=== PATIENT | female | born 2000 | race Caucasian/White ===

== ENCOUNTER 2021-07-30 01:32 | Emergency (ER) | payer OTHER ==
[~2021-07-30] VITALS: Ht 165.1 cm; Wt 68.0 kg
[2021-07-30 03:35] LABS: BASOPHILS ABSOLUTE AUTO 0.07 K/mm3 (0.00-0.23); BASOPHILS PERCENT AUTO 1 % (0-2); EOSINOPHILS ABSOLUTE AUTO 0.07 K/mm3 (0.00-0.68); EOSINOPHILS PERCENT AUTO 1 % (0-6); Hemoglobin 14.3 g/dL (11.5-16.0); IMMATURE GRAN ABSOLUTE AUTO 0.05 K/mm3 (0.00-0.10); IMMATURE GRAN PERCENT AUTO 0 % (0-1); LYMPHOCYTES ABSOLUTE AUTO 0.52 K/mm3 (0.84-5.20); LYMPHOCYTES PERCENT AUTO 4 % (21-46); MONOCYTES ABSOLUTE AUTO 0.72 K/mm3 (0.16-1.47); MONOCYTES PERCENT AUTO 5 % (4-13); Mean Corpuscular HGB 25.6 pg (26.0-34.0); Mean Corpuscular HGB Conc 32.5 g/dL (31.5-36.5); Mean Corpuscular Volume 79 fL (80-100); Mean Platelet Volume 10.1 fL (9.1-12.4); NEUTROPHILS PERCENT AUTO 90 % (41-73); Platelet Count 351 K/mm3 (150-400); RDW Coefficient Variation 14.6 % (11.7-14.2); RDW Standard Deviation 41.4 fL (35.1-46.3); Red Blood Cell Count 5.58 M/mm3 (3.80-5.20); White Blood Cell Count 14.63 K/mm3 (4.00-11.30)
[2021-07-30 03:51] LABS: Albumin, Blood 3.9 g/dL (3.4-5.0); Bilirubin, Total 0.4 mg/dL (0.1-1.0); Bun/Creatinine Ratio 23.2 (12.0-20.0); Calcium, Blood 9.6 mg/dL (8.5-10.1); Creatinine, Blood 0.65 mg/dL (0.40-1.00); Globulin, Blood 4.1 g/dL (2.2-4.0); Potassium, Blood 4.1 mmol/L (3.5-5.5)
[2021-07-30 04:12] LABS: Source, Urine Clean Catch
[2021-07-30 04:15] LABS: Blood, Urine Neg (Neg); Glucose Qualitative, Urine 2+ (Neg); Ketones, Urine Neg (Neg); Leukocyte Esterase, Urine 1+ (Neg); Nitrite, Urine Neg (Neg); Protein, Urine 2+ (Neg); Urobilinogen, Urine NORM (Normal)
[2021-07-30 04:22] LABS: Appearance, Urine Hazy (Clear); Bilirubin, Urine 1+ (Neg); Color, Urine Yellow (P-Yellow)
[2021-07-30 04:24] LABS: Bacteria Few /hpf; Mucus Light (0-Heavy); Squamous Epithelial Cells Many /hpf (Few); Yeast/Fungi Urine Few /hpf
[2021-07-30 05:57] LABS: Influenza A Negative (NEGATIVE); Influenza B Negative (NEGATIVE)
[2021-07-30 06:13] LABS: SARS-Cov-2 (COVID-19) PCR, MMC NEGATIVE (NEGATIVE)
[2021-07-30 06:25] LABS: Source, Urine Clean Catch
[2021-07-30 06:28] LABS: Bilirubin, Urine Neg (Neg); Blood, Urine Neg (Neg); Glucose Qualitative, Urine 1+ (Neg); Ketones, Urine 4+ (Neg); Leukocyte Esterase, Urine 1+ (Neg); Nitrite, Urine Neg (Neg); Protein, Urine 2+ (Neg); Specific Gravity, Urine 1.015 (1.003-1.022); Urobilinogen, Urine NORM (Normal); pH, Urine 6.5 (5.0-8.0)
[2021-07-30 06:44] LABS: Appearance, Urine Hazy (Clear); Bacteria Few /hpf; Color, Urine Yellow (P-Yellow); Red Blood Cells, Urine Not Seen /hpf (0-2); Squamous Epithelial Cells Mod /hpf (Few)
[2021-07-30] MEDS ORDERED: ONDA4ODT MM (07:19)
[2021-07-30] MEDS ORDERED: CEFP200 PO (07:19)
== END 2021-07-30 07:34 | disposition home or self-care (01) ==
LOC: ER 01:32
PROVIDERS: Emergency Medicine; Student in an Organized Health Care Education/Training Program
DX: R10.9 Unspecified abdominal pain (principal); E11.9 Type 2 diabetes mellitus without complications; R11.2 Nausea with vomiting, unspecified; Z20.822 Contact with and (suspected) exposure to COVID-19
CPT/HCPCS: 36415; 80053; 81001; 81025; 82947; 85025; 87804; 87807; A9270; J0696; J1885; J2405; J2765; J7030; U0004

== ENCOUNTER 2022-02-25 15:42 | Emergency (ER) | payer OTHER ==
[~2022-02-25] VITALS: Ht 165.1 cm; Wt 63.5 kg
[~2022-02-25 15:42] MED LIST: CEFP200 PO; CEPH500 PO; ONDA4ODT MM
[2022-02-25 16:51] LABS: Albumin, Blood 3.8 g/dL (3.4-5.0); Albumin/Globulin Ratio 1.1 (0.8-1.8); Bilirubin, Total 0.5 mg/dL (0.1-1.0); Bun/Creatinine Ratio 19.5 (12.0-20.0); Creatinine, Blood 0.67 mg/dL (0.40-1.00); Globulin, Blood 3.5 g/dL (2.2-4.0); Potassium, Blood 4.1 mmol/L (3.5-5.5); Total Protein, Blood 7.3 g/dL (6.4-8.2)
[2022-02-25 16:55] LABS: Influenza B, PCR NEGATIVE (NEGATIVE); Resp Syncytial Virus, PCR NEGATIVE (NEGATIVE); SARS-Cov-2 (COVID-19) PCR, MMC NEGATIVE (NEGATIVE)
[2022-02-25 16:58] LABS: Influenza A, PCR POSITIVE (NEGATIVE)
[2022-02-25 17:01] LABS: BASOPHILS PERCENT AUTO 1 % (0-2); EOSINOPHILS ABSOLUTE AUTO 0.06 K/mm3 (0.00-0.68); EOSINOPHILS PERCENT AUTO 1 % (0-6); Hemoglobin 13.6 g/dL (11.5-16.0); NRBC ABSOLUTE 0.03 K/mm3 (0.00-0.02); NRBC Auto 0.3 /100 WBC (0.0-0.2)
[2022-02-25 17:03] LABS: IMMATURE GRAN PERCENT AUTO 1 % (0-1); LYMPHOCYTES PERCENT AUTO 5 % (21-46)
[2022-02-25 17:23] LABS: BASOPHILS ABSOLUTE AUTO 0.14 K/mm3 (0.00-0.23); IMMATURE GRAN ABSOLUTE AUTO 0.14 K/mm3 (0.00-0.10); LYMPHOCYTES ABSOLUTE AUTO 0.53 K/mm3 (0.84-5.20); MONOCYTES ABSOLUTE AUTO 0.99 K/mm3 (0.16-1.47); MONOCYTES PERCENT AUTO 9 % (4-13); NEUTROPHILS ABSOLUTE AUTO 9.29 K/mm3 (1.96-9.15); NEUTROPHILS PERCENT AUTO 83 % (41-73); Red Blood Cell Count 4.96 M/mm3 (3.80-5.20); White Blood Cell Count 11.15 K/mm3 (4.00-11.30)
[2022-02-25 17:24] LABS: Hematocrit 40.4 % (33.0-51.0); Mean Corpuscular HGB 27.4 pg (26.0-34.0); Mean Corpuscular HGB Conc 33.7 g/dL (31.5-36.5); Mean Corpuscular Volume 82 fL (80-100); Mean Platelet Volume 10.4 fL (9.1-12.4); Platelet Count 347 K/mm3 (150-400); RDW Coefficient Variation 13.2 % (11.7-14.2); RDW Standard Deviation 37.9 fL (35.1-46.3)
== END 2022-02-25 20:40 | disposition home or self-care (01) ==
LOC: ER 15:42
PROVIDERS: Physician Assistant
DX: J10.1 Influenza due to other identified influenza virus with other respiratory manifestations (principal); E10.9 Type 1 diabetes mellitus without complications; Z88.1 Allergy status to other antibiotic agents; Z88.8 Allergy status to other drugs, medicaments and biological substances; Z20.822 Contact with and (suspected) exposure to COVID-19
CPT/HCPCS: 0241U; 36415; 80053; 83690; 84703; 85025; J1885; J7030

== ENCOUNTER → 2022-09-22 | Outpatient (CLI) | payer OTHER ==
[2022-09-25 02:31] LABS: CHLAMYDIA TRACHOMATIS, NAA Negative (Negative)
== END | disposition home or self-care (01) ==
LOC: LAB 19:00 → LAB SHORT 19:00
PROVIDERS: Physician Assistant Medical
DX: N89.8 Other specified noninflammatory disorders of vagina (principal)
CPT/HCPCS: 87070; 87205; 87491; 87591

== ENCOUNTER → 2023-01-26 | Outpatient (CLI) | payer OTHER ==
[~2023-01-26] MED LIST changes: +INSULIN AS100 UNIT/8; +OXYC5 PO; +PROM25 PO
[2023-01-27 11:34] LABS: Candida species (DNA Probe) Negative (NEGATIVE); G. vaginalis (DNA Probe) Negative (NEGATIVE); T. vaginalis (DNA Probe) Negative (NEGATIVE)
== END | disposition home or self-care (01) ==
LOC: LAB 15:08 → LAB SHORT 15:08
PROVIDERS: Physician Assistant Medical
DX: R31.9 Hematuria, unspecified (principal)
CPT/HCPCS: 87480; 87510; 87660

== ENCOUNTER → 2023-02-03 | Outpatient (CLI) | payer OTHER ==
[2023-02-03 14:12] LABS: Source, Urine Clean Catch
[2023-02-03 16:43] LABS: Bacteria Many /hpf; Squamous Epithelial Cells Mod /hpf (Few); Transitional Epithelial Cells Rare /hpf (0-Rare)
[2023-02-03 16:50] LABS: U Amphetamine Screen Not Detected; U Barbituate Screen Not Detected; U Benzodiazapine Screen Not Detected; U Buprenorphine Screen Not Detected; U Cannabinoids Screen DETECTED; U Cocaine Screen Not Detected; U Methadone Screen Not Detected; U Methamphetamine Screen Not Detected; U Opiates Screen Not Detected; U Oxycodone Screen Not Detected; U Phencyclidine Screen Not Detected
[2023-02-06 08:14] LABS: 11-NOR-9-CARBOXY-THC,URN,QUANT >500 ng/mL
== END | disposition home or self-care (01) ==
LOC: LAB 14:10 → LAB SHORT 14:10
PROVIDERS: Advanced Practice Midwife
DX: Z34.81 Encounter for supervision of other normal pregnancy, first trimester (principal)
CPT/HCPCS: 81015; 87086; G0480

== ENCOUNTER 2023-06-27 18:46 | Emergency (ER) | payer OTHER ==
[~2023-06-27] VITALS: Ht 165.1 cm; Wt 78.0 kg
[~2023-06-27 18:46] MED LIST changes: +PYRI100 PO; +Zithromax250 MG PO
[2023-06-27 19:59] LABS: BASOPHILS ABSOLUTE AUTO 0.06 K/mm3 (0.00-0.23); BASOPHILS PERCENT AUTO 1 % (0-2); EOSINOPHILS ABSOLUTE AUTO 0.11 K/mm3 (0.00-0.68); EOSINOPHILS PERCENT AUTO 1 % (0-6); Hematocrit 35.8 % (33.0-51.0); Hemoglobin 11.8 g/dL (11.5-16.0); IMMATURE GRAN ABSOLUTE AUTO 0.04 K/mm3 (0.00-0.10); IMMATURE GRAN PERCENT AUTO 0 % (0-1); LYMPHOCYTES ABSOLUTE AUTO 1.69 K/mm3 (0.84-5.20); LYMPHOCYTES PERCENT AUTO 13 % (21-46); MONOCYTES ABSOLUTE AUTO 0.91 K/mm3 (0.16-1.47); MONOCYTES PERCENT AUTO 7 % (4-13); Mean Corpuscular HGB 25.9 pg (26.0-34.0); Mean Corpuscular Volume 79 fL (80-100); Mean Platelet Volume 10.7 fL (9.1-12.4); NEUTROPHILS ABSOLUTE AUTO 10.11 K/mm3 (1.96-9.15); NEUTROPHILS PERCENT AUTO 78 % (41-73); Platelet Count 262 K/mm3 (150-400); RDW Coefficient Variation 12.8 % (11.7-14.2); RDW Standard Deviation 36.2 fL (35.1-46.3); Red Blood Cell Count 4.56 M/mm3 (3.80-5.20); White Blood Cell Count 12.92 K/mm3 (4.00-11.30)
[2023-06-27] MEDS ORDERED: ONDA4 PO (20:00)
[2023-06-27] MEDS ORDERED: NOVOLOG100 UNIT/2 SC (20:01)
[2023-06-27] MEDS ORDERED: INSULIN GL100 UNIT/2 SC (20:01)
[2023-06-27] MEDS ORDERED: Ondansetron HCl 2 MG / ML 2ML Vial IV ONE (20:10)
[2023-06-27 20:21] LABS: Albumin, Blood 2.7 g/dL (3.4-5.0); Albumin/Globulin Ratio 0.6 (0.8-1.8); Bilirubin, Total 0.3 mg/dL (0.1-1.0); Bun/Creatinine Ratio 16.6 (12.0-20.0); Calcium, Blood 8.8 mg/dL (8.5-10.1); Creatinine, Blood 0.48 mg/dL (0.40-1.00); Globulin, Blood 4.4 g/dL (2.2-4.0); Total Protein, Blood 7.1 g/dL (6.4-8.2)
[2023-06-27 20:22] LABS: Source, Urine Clean Catch
[2023-06-27 20:27] LABS: Appearance, Urine Clear (Clear); Bilirubin, Urine Neg (Neg); Blood, Urine Neg (Neg); Color, Urine Yellow (P-Yellow); Glucose Qualitative, Urine 2+ (Neg); Ketones, Urine 4+ (Neg); Leukocyte Esterase, Urine 1+ (Neg); Nitrite, Urine Neg (Neg); Protein, Urine 2+ (Neg); Urobilinogen, Urine NORM (Normal)
[2023-06-27 20:37] LABS: Bacteria Many /hpf; Hyaline Casts 0-2 /lpf (0-2); Mucus Mod (0-Heavy); Red Blood Cells, Urine 0-2 /hpf (0-2); Squamous Epithelial Cells Many /hpf (Few)
[2023-06-27] MEDS ORDERED: DiphenhydrAMINE HCl 50 MG/ML 1ML Vial IV ONE (20:40)
[2023-06-27] MEDS ORDERED: Lactated Ringer's 1,000 ML IV ONE (20:40)
[2023-06-27] MEDS ORDERED: FentaNYL Citrate 50 MCG/ML 2 ML Injection IV PRN (20:40)
[2023-06-27] MEDS ORDERED: Metoclopramide HCl 5MG / ML 2ML Vial IV ONE (20:40)
[2023-06-27] MEDS ORDERED: Famotidine 10 MG/ML 2ML Vial IV ONE (22:05)
[2023-06-27] MEDS ORDERED: RX Prepack 2 Tabs Ondansetron ODT 4MG UD ONE (22:35)
[2023-06-27] MEDS ORDERED: HYDR1TAB94 PO (22:39)
[2023-06-27] MEDS ORDERED: ONDA4ODT SL (22:39)
[2023-06-27] MEDS ORDERED: RX PP HYDROcodone-APAP 1 Prepack/30MLBTL UD ONE (22:40)
[2023-06-27 22:45] VITALS: BP 123/85
== END 2023-06-27 22:53 | disposition home or self-care (01) ==
LOC: ER 18:46
PROVIDERS: Emergency Medicine
DX: O26.893 Other specified pregnancy related conditions, third trimester (principal); R10.12 Left upper quadrant pain; R11.10 Vomiting, unspecified; R82.81 Pyuria; O24.013 Pre-existing type 1 diabetes mellitus, in pregnancy, third trimester; Z3A.29 29 weeks gestation of pregnancy; Z88.0 Allergy status to penicillin; Z88.1 Allergy status to other antibiotic agents
CPT/HCPCS: 76700; 76815; 80053; 81001; 82947; 83690; 85025; 87086; 96361; 96374; 96375; 96376; 99284-25; A9270; J1200; J2405; J2765; J3010; J7120

== ENCOUNTER 2023-06-28 17:49 | Inpatient (IN) | payer OTHER ==
[~2023-06-28] VITALS: Ht 165.1 cm; Wt 78.2 kg
[~2023-06-28 17:49] MED LIST changes: +HYDR1TAB94 PO; +INSULIN GL100 UNIT/2 SC; +NOVOLOG100 UNIT/2 SC; +ONDA4 PO; +ONDA4ODT SL
[2023-06-28 18:01] VITALS: BP 120/75
[2023-06-28] MEDS ORDERED: Metoclopramide HCl 5MG / ML 2ML Vial IV ONE (18:25)
[2023-06-28] MEDS ORDERED: FentaNYL Citrate 50 MCG/ML 2 ML Injection IV ONE (18:25)
[2023-06-28] MEDS ORDERED: Lactated Ringer's 500 ML IV ONE (18:25)
[2023-06-28] MEDS ORDERED: Ondansetron HCl 2 MG / ML 2ML Vial IV PRN ×2 (18:25→21:20)
[2023-06-28 20:07] LABS: BASOPHILS ABSOLUTE AUTO 0.09 K/mm3 (0.00-0.23); BASOPHILS PERCENT AUTO 1 % (0-2); EOSINOPHILS ABSOLUTE AUTO 0.07 K/mm3 (0.00-0.68); EOSINOPHILS PERCENT AUTO 1 % (0-6); Hematocrit 34.7 % (33.0-51.0); Hemoglobin 11.4 g/dL (11.5-16.0); IMMATURE GRAN ABSOLUTE AUTO 0.09 K/mm3 (0.00-0.10); IMMATURE GRAN PERCENT AUTO 1 % (0-1); LYMPHOCYTES ABSOLUTE AUTO 1.53 K/mm3 (0.84-5.20); LYMPHOCYTES PERCENT AUTO 11 % (21-46); MONOCYTES PERCENT AUTO 6 % (4-13); Mean Corpuscular HGB Conc 32.9 g/dL (31.5-36.5); Mean Corpuscular Volume 79 fL (80-100); Mean Platelet Volume 10.7 fL (9.1-12.4); NEUTROPHILS ABSOLUTE AUTO 11.96 K/mm3 (1.96-9.15); NEUTROPHILS PERCENT AUTO 82 % (41-73); Platelet Count 289 K/mm3 (150-400); RDW Coefficient Variation 12.6 % (11.7-14.2); RDW Standard Deviation 36.1 fL (35.1-46.3); Red Blood Cell Count 4.38 M/mm3 (3.80-5.20); White Blood Cell Count 14.54 K/mm3 (4.00-11.30)
[2023-06-28] MEDS ORDERED: Cyclobenzaprine HCl 10 MG Tab PO ONE (20:10)
[2023-06-28] MEDS ORDERED: Lactated Ringer's 1,000 ML IV ONE (20:10)
[2023-06-28] MEDS ORDERED: Pantoprazole Sodium 40 MG Injection IV ONE (20:10)
[2023-06-28 20:32] LABS: Albumin, Blood 2.7 g/dL (3.4-5.0); Albumin/Globulin Ratio 0.6 (0.8-1.8); Bilirubin, Total 0.4 mg/dL (0.1-1.0); Bun/Creatinine Ratio 10.6 (12.0-20.0); Calcium, Blood 8.6 mg/dL (8.5-10.1); Creatinine, Blood 0.57 mg/dL (0.40-1.00); Globulin, Blood 4.2 g/dL (2.2-4.0); Potassium, Blood 3.7 mmol/L (3.5-5.5); Total Protein, Blood 6.9 g/dL (6.4-8.2)
[2023-06-28 20:34] VITALS: BP 110/58
[2023-06-28] MEDS ORDERED: Metoclopramide HCl 5MG / ML 2ML Vial IV PRN (21:20)
[2023-06-28 21:27] LABS: Magnesium, Blood 1.7 mg/dL (1.6-2.4)
[2023-06-28] MEDS ORDERED: NS KCl 20mEq 1,000 ML IV SCH (22:00)
[2023-06-28 22:03] LABS: Beta-hydroxybutyrate 46.2 mg/dL (0.2-2.8)
[2023-06-28 22:04] LABS: Phosphorus, Blood 2.4 mg/dL (2.5-4.9)
[2023-06-28] MEDS ORDERED: Potassium Phosphate Dibasic 20 MM in Dextrose 5% 500 ML IV STA ×2 (22:18→23:39)
[2023-06-28] MEDS ORDERED: Sodium Bicarb 8.4% Inj 100 MEQ in Sodium Chloride 0.45% 1,000 ML IV SCH (22:30)
[2023-06-28 22:33] VITALS: BP 121/74
[2023-06-28] MEDS ORDERED: Insulin Glargine-Yfgn 100 Unit/mL 3 ML SYR SC ONE (22:45)
[2023-06-28] MEDS ORDERED: FentaNYL Citrate 50 MCG/ML 2 ML Injection IV PRN (22:55)
[2023-06-28] MEDS ORDERED: Acetaminophen 500 MG Tab PO PRN (22:55)
[2023-06-28 23:04] LABS: Bun/Creatinine Ratio 10.6 (12.0-20.0); Calcium, Blood 8.1 mg/dL (8.5-10.1); Creatinine, Blood 0.57 mg/dL (0.40-1.00); Potassium, Blood 3.7 mmol/L (3.5-5.5)
[2023-06-29] MEDS ORDERED: METO10 PO (00:40)
[2023-06-29 00:55] VITALS: BP 119/69
[2023-06-29 01:07] LABS: Source, Urine Clean Catch
[2023-06-29 01:13] LABS: Bilirubin, Urine Neg (Neg); Blood, Urine Neg (Neg); Glucose Qualitative, Urine 2+ (Neg); Ketones, Urine 4+ (Neg); Leukocyte Esterase, Urine Neg (Neg); Nitrite, Urine Neg (Neg); Protein, Urine 2+ (Neg); Specific Gravity, Urine 1.025 (1.003-1.022); Urobilinogen, Urine NORM (Normal)
[2023-06-29 01:25] LABS: Appearance, Urine Clear (Clear); Color, Urine Yellow (P-Yellow)
[2023-06-29 01:27] LABS: Bacteria Rare /hpf; Red Blood Cells, Urine Not Seen /hpf (0-2); Squamous Epithelial Cells Mod /hpf (Few); White Blood Cells, Urine 0-2 /hpf (0-5)
--- NOTE | 2023-06-29 01:30 | NUR ---
CBG 110, NO INSULIN COVERAGE INDICATED PER LOW SS ORDER
[2023-06-29 04:12] VITALS: BP 119/62
[2023-06-29 05:00] LABS: BASOPHILS ABSOLUTE AUTO 0.06 K/mm3 (0.00-0.23); BASOPHILS PERCENT AUTO 1 % (0-2); EOSINOPHILS ABSOLUTE AUTO 0.14 K/mm3 (0.00-0.68); EOSINOPHILS PERCENT AUTO 1 % (0-6); Hematocrit 27.8 % (33.0-51.0); Hemoglobin 9.4 g/dL (11.5-16.0); IMMATURE GRAN ABSOLUTE AUTO 0.07 K/mm3 (0.00-0.10); IMMATURE GRAN PERCENT AUTO 1 % (0-1); LYMPHOCYTES ABSOLUTE AUTO 2.12 K/mm3 (0.84-5.20); LYMPHOCYTES PERCENT AUTO 19 % (21-46); MONOCYTES ABSOLUTE AUTO 0.88 K/mm3 (0.16-1.47); MONOCYTES PERCENT AUTO 8 % (4-13); Mean Corpuscular HGB 26.5 pg (26.0-34.0); Mean Corpuscular HGB Conc 33.8 g/dL (31.5-36.5); Mean Corpuscular Volume 78 fL (80-100); Mean Platelet Volume 10.4 fL (9.1-12.4); NEUTROPHILS PERCENT AUTO 71 % (41-73); Platelet Count 239 K/mm3 (150-400); RDW Coefficient Variation 12.7 % (11.7-14.2); Red Blood Cell Count 3.55 M/mm3 (3.80-5.20); White Blood Cell Count 11.37 K/mm3 (4.00-11.30)
[2023-06-29 05:24] LABS: Albumin, Blood 2.1 g/dL (3.4-5.0); Albumin/Globulin Ratio 0.6 (0.8-1.8); Bilirubin, Total 0.3 mg/dL (0.1-1.0); Bun/Creatinine Ratio 7.4 (12.0-20.0); Calcium, Blood 7.7 mg/dL (8.5-10.1); Creatinine, Blood 0.54 mg/dL (0.40-1.00); Globulin, Blood 3.4 g/dL (2.2-4.0); Potassium, Blood 3.8 mmol/L (3.5-5.5); Total Protein, Blood 5.5 g/dL (6.4-8.2)
--- NOTE | 2023-06-29 05:44 | NUR ---
DR JOLLEY UPDATED BY PHONE. HE HAS REVIEWED THE AM LABS AND NEW ORDERS ARE PENDING.
[2023-06-29] MEDS ORDERED: Sodium Bicarb 8.4% Inj 100 MEQ in Sodium Chloride 0.45% 1,000 ML IV ONE (05:45)
[2023-06-29] MEDS ORDERED: Sodium Bicarb 8.4% 1 MEQ/ML 50 ML Vial ONE (05:50)
[2023-06-29] MEDS ORDERED: Insulin Human Lispro 100 Units/ML 3ML Syringe SC SCH ×4 (06:00→08:30)
[2023-06-29] MEDS ORDERED: Sodium Bicarb 8.4% 1 MEQ/ML 50 ML Vial IV ONE (06:00)
[2023-06-29] MEDS ORDERED: Pantoprazole Sodium 40 MG Injection IV SCH (06:28)
[2023-06-29 08:04] VITALS: BP 119/65
--- NOTE | 2023-06-29 08:29 | NUR ---
UPDATE UPDATE TO DR RHODES. OK TO TRANSFER TO MEDICAL FLOOR. WILL CONTINUE TO DO NST TWICE A SHIFT. CALL TO DIALS SUPERVISOR AND WILL CALL BACK WITH A BED NUMBER. PT RESTING AFTER FENTANYL.
[2023-06-29] MEDS ORDERED: FentaNYL Citrate 50 MCG/ML 2 ML Injection IV PRN (08:45)
[2023-06-29] MEDS ORDERED: Enoxaparin 40 MG/0.4 ML SYR SC SCH (09:00)
--- NOTE | 2023-06-29 10:18 | NUR ---
REPORT GIVEN TO LIGIA Leyva RN. PT TRANSFERRED TO ROOM 330 AT THIS TIME. WILL BE BACK UP THIS AFTERNOON FOR NST. PT FEELING OK AT THIS TIME AFTER LAST DOSE OF FENTANYL. IV SALINE LOCKED FOR TRANSPORT AND NEW BAG OF SODIUM BICARB GIVEN TO BARRY RODRIGUEZ TO HANG.
[2023-06-29 10:54] VITALS: BP 119/86
[2023-06-29 11:25] LABS: Bun/Creatinine Ratio 6.9 (12.0-20.0); Creatinine, Blood 0.58 mg/dL (0.40-1.00); Potassium, Blood 3.5 mmol/L (3.5-5.5)
[2023-06-29 12:49] LABS: Influenza A, PCR NEGATIVE (NEGATIVE); Influenza B, PCR NEGATIVE (NEGATIVE); Resp Syncytial Virus, PCR NEGATIVE (NEGATIVE); SARS-Cov-2 (COVID-19) PCR, MMC NEGATIVE (NEGATIVE)
[2023-06-29] MEDS ORDERED: Potassium Chloride 40 MEQ in NS 250 ML IV ONE (15:50)
[2023-06-29] MEDS ORDERED: NS 250 ML IV PRN (16:40)
[2023-06-29] MEDS ORDERED: Insulin Glargine-Yfgn 100 Unit/mL 3 ML SYR SC ONE (17:55)
[2023-06-29] MEDS ORDERED: Insulin Glargine-Yfgn 100 Unit/mL 3 ML SYR SC SCH ×2 (18:00→21:00)
[2023-06-29 18:03] VITALS: BP 123/83
[2023-06-29 18:24] LABS: Bun/Creatinine Ratio 7.8 (12.0-20.0); Calcium, Blood 8.1 mg/dL (8.5-10.1); Creatinine, Blood 0.51 mg/dL (0.40-1.00); Potassium, Blood 3.8 mmol/L (3.5-5.5)
--- NOTE | 2023-06-29 19:29 | NUR ---
PT IS ALERT AND ORIENTED X4. ABLE TO MAKE NEEDS KNOWN. SHE TOLORATED DINNER THIS EVENING. INDEPENDENT IN ROOM. BACK PAIN HAS BEEN DIFFICULT TO CONTROL. PT NO LONGER IN DKA. BLOOD SUGARS HAVE BEEN WNL.
[2023-06-29 19:43] VITALS: BP 116/66
[2023-06-30] VITALS (15 sets, daily range): BP systolic 111–156; BP diastolic 65–105
--- NOTE | 2023-06-30 05:25 | NUR ---
SHIFT SUMMARY PT HAS BEEN IN INTENSE PAIN WITH ACHEY/CRAMPY PAIN IN HER LOWER BACK. SOME RELIEF FOUND WITH COUNTER PRESSURE. APPROX 0515, PT EXPERIENCED SUDDEN SHARP CRAMPING PAIN IN THE RIGHT SIDE OF HER ABDOMEN THAT CAME WITH IMMENSE PAIN IN HER BACK, AND TIGHTENING IN HER BELLY. INFORMED FBP. WILL CONTINUE TO MONITOR. PT WOULD CERTAINLY BENEFIT FROM BRASS POLISHER, SHE HAS BEEN RECEIVING 50MCG IV FENTANYL Q1-2HRS CONSISTANTLY THROUGHOUT SHIFT. HER PAIN IS DULLED WITH MEDICATION ADMINISTRATION. PT UNDERGOING NST'S Q6HRS FROM FBP. CONTINUING TO MONITOR. PT HAS BEEN PLEASANT AND COOPERATIVE WITH CARE.
[2023-06-30] MEDS ORDERED: D5W-NS 1,000 ML IV SCH (07:55)
[2023-06-30] MEDS ORDERED: Insulin Human Regular 100 UNIT in NS 100 ML IV SCH (08:00)
--- NOTE | 2023-06-30 08:31 | NUR ---
0818. Pt awake and alert x4. Ambulating to bathroom independently. Nausea improved with IV Zofran. Resp even nonlabored on RA. Orders to transfer to ICU for insulin gtt. Pt informed of transfer. Report called to TILE MECHANICMICHAEL Carmona. Pt transferred to ICU with german professorMICHAEL jernigan all belongings.
[2023-06-30] MEDS ORDERED: OxyCODONE HCL 5 MG TAB PO PRN ×2 (08:35)
[2023-06-30] MEDS ORDERED: Cyclobenzaprine HCl 10 MG Tab PO PRN (08:35)
[2023-06-30] MEDS ORDERED: FentaNYL Citrate 50 MCG/ML 2 ML Injection IV PRN (08:35)
[2023-06-30] MEDS ORDERED: Famotidine 10 MG/ML 2ML Vial IV SCH (09:00)
[2023-06-30] MEDS ORDERED: Acetaminophen 500 MG Tab PO SCH (09:00)
[2023-06-30] MEDS ORDERED: Sod Ferric Gluc Complx/Sucrose 125 MG in NS 100 ML IV SCH (09:00)
[2023-06-30 10:28] LABS: Bun/Creatinine Ratio 5.7 (12.0-20.0); Calcium, Blood 8.5 mg/dL (8.5-10.1); Creatinine, Blood 0.52 mg/dL (0.40-1.00); Magnesium, Blood 1.7 mg/dL (1.6-2.4); Phosphorus, Blood 1.9 mg/dL (2.5-4.9)
[2023-06-30 12:14] LABS: U Amphetamine Screen Not Detected; U Barbituate Screen Not Detected; U Benzodiazapine Screen Not Detected; U Buprenorphine Screen Not Detected; U Cannabinoids Screen DETECTED; U Cocaine Screen Not Detected; U Methadone Screen Not Detected; U Methamphetamine Screen Not Detected; U Opiates Screen Not Detected; U Oxycodone Screen Not Detected; U Phencyclidine Screen Not Detected
[2023-06-30] MEDS ORDERED: Potassium Phosphate Dibasic 30 MM in Dextrose 5% 500 ML IV STA (12:28)
--- NOTE | 2023-06-30 13:23 | NUR ---
Pt. is awake in bed and on the phone with family. As soon as she hung up I entered the room and she welcomed my visit. Pt. is pleasant, but displays evidence of being anxious about having a new line put in. WHen this liquor rectifier arrived, the Pt. verbalized, "you are exactly who I wantd to see." Pastoral encouagement is given and I normalize the Pt. experience. Prayed with Pt. Pt. vebralized gratitude for the spiritual care visit, and welcomed this liquor rectifier to return.
[2023-06-30 14:24] LABS: Bun/Creatinine Ratio 5.3 (12.0-20.0); Calcium, Blood 8.4 mg/dL (8.5-10.1); Creatinine, Blood 0.57 mg/dL (0.40-1.00); Phosphorus, Blood 1.9 mg/dL (2.5-4.9); Potassium, Blood 4.1 mmol/L (3.5-5.5)
--- NOTE | 2023-06-30 17:57 | NUR ---
SUMMARY PT TRANSFERED FROM MEDICAL FLOOR THIS AM FOR INSULIN GTT. STARTED ON D5 NS WELL. A/O X4, OOB INDEP. PT C/O LOW BACK PAIN. HAS GOTTEN OXYCODONE, FENTANYL, FLEXERIL AND TYLENOL T/O THE DAY. PAIN PERSISTS. NO NAUSEA. WAS ANXIOUS THIS AM AND FEELING OVERWHELMED, TEARFUL, BUT SEEMS TO BE IMPROVING THE DAY GOES ON. DR. OLIVA UPDATED THIS AFTERNOON AT BEDSIDE. L&D NURSE AT BEDSIDE FOR MONITORING THIS AFTERNOON.
[2023-06-30 18:22] LABS: Bun/Creatinine Ratio 3.4 (12.0-20.0); Calcium, Blood 8.5 mg/dL (8.5-10.1); Creatinine, Blood 0.59 mg/dL (0.40-1.00); Magnesium, Blood 2.1 mg/dL (1.6-2.4); Phosphorus, Blood 1.9 mg/dL (2.5-4.9)
--- NOTE | 2023-06-30 20:47 | NUR ---
ASSUMPTION OF CARE: RECEIVED REPORT FROM ALVIN RODRIGUEZ. PT ALERT AND ORIENTED AND ABLE TO ANSWER QUESTIONS APPROPRIATELY. PT COOPERATIVE WITH CARE, ALTHOUGH NOTICEABLY ANXIOUS AT TIMES AND SOMETIMES TEARFUL. PT ON RA WITH SPO2 >95%. DENIES SOB. WELDING MACHINE OPERATOR THERMIT IN PLACE, ST WITH HR 100'S. DENIES CHEST PAIN/PRESSURE. SBP STABLE. PT ON INSULIN DRIP AT 1 UNIT/HR. D5NS AT 125 ML/HR. INFUSING THROUGH POWERGLIDE TO CHU. POWERGLIDE PATENT. PIV TO ESEQUIEL, PATENT AND SALINE LOCKED. PT ENDORSES PAIN IN LOWER BACK AND UPPER STOMACH, SHE STATES IT IS A MORE CHRONIC PAIN AND HER OB IS AWARE. MEDICATED PER EMAR AND GIVEN A HEATING PAD WHICH SHE STATES MADE THE PAIN MORE TOLERABLE. PT ABLE TO AMBULATE TO TOILET INDEPENDENTLY. VOIDING YELLOW URINE. NO BM THIS SHIFT. TOLERATING PO INTAKE WELL. PT HAD AN EPISODE OF NAUSEA, MEDICATED PER EMAR WITH RELIEF. BED LOW AND LOCKED. CALL LIGHT IN REACH.
[2023-06-30 22:52] LABS: Bun/Creatinine Ratio 3.4 (12.0-20.0); Calcium, Blood 8.3 mg/dL (8.5-10.1); Creatinine, Blood 0.59 mg/dL (0.40-1.00); Potassium, Blood 3.7 mmol/L (3.5-5.5)
[2023-06-30] MEDS ORDERED: Potassium Chloride 20 MEQ TabCR PO ONE (23:10)
[2023-07-01] VITALS (13 sets, daily range): BP systolic 104–143; BP diastolic 59–98
[2023-07-01] MEDS ORDERED: Acetaminophen 500 MG Tab PO PRN (02:35)
[2023-07-01 02:38] LABS: Bun/Creatinine Ratio 3.3 (12.0-20.0); Calcium, Blood 8.2 mg/dL (8.5-10.1); Creatinine, Blood 0.6 mg/dL (0.40-1.00); Potassium, Blood 4.1 mmol/L (3.5-5.5)
--- NOTE | 2023-07-01 05:25 | NUR ---
SHIFT SUMMARY: PT CONTINUES TO REMAIN ALERT AND ORIENTED T/O THE SHIFT. PT STILL HAVING FREQUENT COMPLAINTS OF PAIN IN HER LOWER BACK AND MID ABDOMEN. MEDICATED PER EMAR WITH MINIMAL RELIEF. HEATING PAD APPLIED TO BACK, WITH MINIMAL RELIEF. PT REMAINS ON RA WITH SPO2 >95%. DENIES SOB. PT HAD C/O NAUSEA T/O THE NIGHT WHICH WAS RELIEVED WITH MEDICATION AND CRACKERS. TERMINAL OPERATIONS SUPERVISOR IN PLACE, ST WITH HR 100'S. SBP STABLE, NO C/O CHEST PAIN OR PRESSURE. PT AMBULATING TO TOILET IND. VOIDING YELLOW URINE. NO BM THIS SHIFT. TOLERATING PO INTAKE. INSULIN DRIP AT 1 UNIT/HR. D5NS AT 125 ML/HR. POWERGLIDE TO CHU, PATENT AND INFUSING. PIV TO ESEQUIEL, PATENT AND SALINE LOCKED. PT FRIEND REMAINED AT BEDSIDE T/O THE NIGHT. BED LOW AND LOCKED, CALL LIGHT IN REACH.
[2023-07-01 06:58] LABS: Bun/Creatinine Ratio 3.6 (12.0-20.0); Calcium, Blood 8.1 mg/dL (8.5-10.1); Creatinine, Blood 0.55 mg/dL (0.40-1.00); Phosphorus, Blood 2.1 mg/dL (2.5-4.9); Potassium, Blood 3.8 mmol/L (3.5-5.5)
[2023-07-01] MEDS ORDERED: Sodium Phosphate 20 MM in Dextrose 5% 500 ML IV STA (07:14)
[2023-07-01] MEDS ORDERED: D5W-1/2NS 1,000 ML IV SCH (08:15)
[2023-07-01] MEDS ORDERED: FentaNYL Citrate 50 MCG/ML 2 ML Injection IV PRN (09:55)
[2023-07-01 11:11] LABS: Anion Gap 11 mmol/L (3-11); Blood Urea Nitrogen <1 mg/dL (8-24); Bun/Creatinine Ratio Unable to Calculate (12.0-20.0); CO2, Blood 21 mmol/L (21-32); Calcium, Blood 7.9 mg/dL (8.5-10.1); Chloride, Blood 109 mmol/L (98-108); Glomerular Filtration Rate 128 (60-); Glucose, Blood 199 mg/dL (70-99); Potassium, Blood 3.6 mmol/L (3.5-5.5); Sodium, Blood 137 mmol/L (136-145)
[2023-07-01] MEDS ORDERED: Insulin Glargine-Yfgn 100 Unit/mL 3 ML SYR SC ONE (11:55)
--- NOTE | 2023-07-01 11:58 | NUR ---
CALL TO re PT'S REPEAT CHEMISTRY. GAP IS CLOSED, MOVE TO TRANSITIONING PT IS CURRENTLY LYING DOWN RESTING, WILL GIVE LONG ACTING INSULIN ONCE RECEIVED FROM PHARM THEN STOP FLUIDS AFTER ONE HOUR. PT CONTINUES WITH THE INTERMITTENT LOW BACK PAIN, RUNS FROM 8-9/10 TO 5/10 AFTER MEDICATION. TRYING TO STAY ON ORAL AND USE FENTANYL FOR BREAKTHROUGH. LESS NAUSEA NOTED, ABLE TO TAKE IN FLUIDS.
[2023-07-01] MEDS ORDERED: Insulin Human Lispro 100 Units/ML 3ML Syringe SC SCH (12:30)
[2023-07-01] MEDS ORDERED: Witch Hazel/Glycerin PADS TOP SCH (15:15)
--- NOTE | 2023-07-01 16:36 | NUR ---
AROUND 1430 PT WAS TAKEN BY W/C TO THE ICU WAITING ROOM TO VISIT WITH HER SMALL CHILDREN AGES 3 AND 4. SHE WAS ABLE TO VISIT WITH HER S/O AND THE GIRLS WITHOUT INCIDENT. SHE DID BEGIN TO TIRE AND RETURNED TO HER ROOM AFTER ABOUT 30 MINUTES WITH THE FAMILY. SHE CONTINUES TO COMPLAIN OF BACK PAIN AND A H/A. MEDICATED PER APR. BY TO CHECK IN ON HER, SHE IS CURRENTLY RESTING. SHE HAS BEEN ABLE TO KEEP HER FOOD AND FLUIDS DOWN, HER LAST BG WAS 164 AND WAS COVERED WITH MED.SS. UP TO THE BR TO VOID AND MOVES ABOUT THE ROOM. BP REMAINS STABLE, HR LOW 100S.
[2023-07-01 17:55] LABS: Bun/Creatinine Ratio 1.9 (12.0-20.0); Calcium, Blood 8.2 mg/dL (8.5-10.1); Creatinine, Blood 0.54 mg/dL (0.40-1.00); Potassium, Blood 3.7 mmol/L (3.5-5.5)
--- NOTE | 2023-07-01 18:47 | NUR ---
EDER HAD BEEN NAPPING AND WOKE SUDDENLY WITH HER BACK PAIN, SHE IS UP ON THE BED ON HER HANDS AND KNEES TRYING TO GET COMFORTABLE. MEDICATED PER MAR WITH THE 5 OXYCODONE. ALSO GIVEN ANTI-NAUSEA MEDS. HER GAP REMAINS CLOSED, SHE HAS NOT HAD ANY VOMITING. HER SUGARS HAVE BEEN <180. SHE CURRENTLY IS CRYING AND REFUSED ANY FURTHER INTERVENTIONS. BACK RUB AND ENCOURAGEMENT GIVEN. STATES SHE WANTS TO GO HOME.
[2023-07-01] MEDS ORDERED: NIFEdipine 30 MG TabCR PO ONE (20:45)
[2023-07-01] MEDS ORDERED: Insulin Glargine-Yfgn 100 Unit/mL 3 ML SYR SC SCH (21:00)
--- NOTE | 2023-07-01 21:24 | NUR ---
ASSUMPTION OF CARE: RECEIVED REPORT FROM GABINO RODRIGUEZ. PT ALERT AND ORIENTED, ANSWERING QUESTIONS AND FOLLOWING COMMANDS. PT CALM AND COOPERATIVE WITH ALL CARE. PT ON RA WITH SPO2 >95%. DENIES SOB. PT MEDICAL STATUS WITH NO TELE. DENIES CHEST PAIN/PRESSURE. NO C/O N/V THIS EVENING. OB NURSE [place] AT BEDSIDE TO DO NST. PT CONTINUES TO HAVE C/O LOWER BACK PAIN, MEDICATED PER EMAR WITH VERY LITTLE RELIEF. TOLERATING PO INTAKE WELL. PT A LITTLE MORE EDEMATOUS IN ALL EXTREMETIES. PT S/O AT THE BEDSIDE, UPDATED TO PLAN OF CARE. POWERGLIDE TO CHU, PATENT AND SALINE LOCKED. PIV TO ESEQUIEL, PATENT AND SALINE LOCKED. ABLE TO AMBULATE TO BATHRROM IND. VOIDING YELLOW URINE, NO BM YET THIS SHIFT. BED LOW AND LOCKED, CALL LIGHT IN REACH.
[2023-07-02 04:00] VITALS: BP 120/63
[2023-07-02 04:57] LABS: Albumin, Blood 2.2 g/dL (3.4-5.0); Anion Gap 14 mmol/L (3-11); Blood Urea Nitrogen 3 mg/dL (8-24); Bun/Creatinine Ratio 5.3 (12.0-20.0); CO2, Blood 19 mmol/L (21-32); Calcium, Blood 8.2 mg/dL (8.5-10.1); Chloride, Blood 108 mmol/L (98-108); Creatinine, Blood 0.57 mg/dL (0.40-1.00); Glomerular Filtration Rate 130 (60-); Glucose, Blood 241 mg/dL (70-99); Sodium, Blood 137 mmol/L (136-145)
[2023-07-02] MEDS ORDERED: DiphenhydrAMINE HCL 25 MG Cap PO PRN (05:10)
[2023-07-02] MEDS ORDERED: Insulin Glargine-Yfgn 100 Unit/mL 3 ML SYR SC ONE (05:10)
--- NOTE | 2023-07-02 05:21 | NUR ---
SHIFT SUMMARY: PT ABLE TO SLEEP OFF AND ON T/O THE SHIFT. REMAINS ALERT AND ORIENTED. REMAINS ON RA WITH NO C/O SOB. PT DOES HAVE SOME NAUSEA THIS MORNING WHICH WAS RELIEVED WITH MEDICATION PER EMAR. PT CONTINUES TO HAVE PAIN T/O THE SHIFT, MEDICATED FREQUENTLY THIS SHIFT WITH MINIMAL RELIEF. PT MEDICAL STATUS NO TELE. VSS. ABLE TO TRANSFER TO TOILET WITH NO ASSIST. VOIDING YELLOW URINE. NO BM THIS SHIFT. TOLERATING PO INTAKE WELL. POWERGLIDE PATENT AND SALINE LOCKED. S/O AT BEDSIDE T/O THE NIGHT. OB NURSE AT BEDSIDE THIS MORNING FOR NON STRESS TEST. PT C/O ITCHINESS, ORDER GIVEN FOR PO BENADRYL. CALL PLACED TO DR. COUCH REGARDING MORNING LABS, ORDERS GIVEN FOR ADDITIONAL GLARGINE AND MEDIUM SCALE FOR AM BLOOD SUGAR.
[2023-07-02 08:05] VITALS: BP 116/70
[2023-07-02 08:32] LABS: Bun/Creatinine Ratio 4.8 (12.0-20.0); Calcium, Blood 8.5 mg/dL (8.5-10.1); Creatinine, Blood 0.63 mg/dL (0.40-1.00); Potassium, Blood 3.9 mmol/L (3.5-5.5)
[2023-07-02 11:15] VITALS: BP 155/97
[2023-07-02 11:18] VITALS: BP 149/94
--- NOTE | 2023-07-02 11:24 | NUR ---
MEDICATED FOR NAUSEA PER HER REQUEST, BG CHECK 161 AFTER SHE WOKE FROM A NAP SAYING SHE "FELT A LITTLE WEIRD". BP ELEVATED. SHE STATES THAT IS NOT USUAL FOR HER. ENCOURAGEMENT GIVEN. AWAIT ORDERS FOR DISCHARGE FROM . UPDATE TO BOTH AND THIS AM. PLAN FOR LUNCHTIME DISCHARGE HOME WITH ENCOURAGEMENT TO DRINK LOTS OF FLUIDS AND TO REST MUCH POSSIBLE. S/O CURRENTLY AT BEDSIDE. REMAINS UP AND INDEPENDENT IN ROOM.
[2023-07-02] MEDS ORDERED: Insulin Human Lispro 100 Units/ML 3ML Syringe SC SCH (12:30)
[2023-07-02] MEDS ORDERED: FAMO20 PO (13:01)
--- NOTE | 2023-07-02 13:35 | NUR ---
1330-PT DISCHARGED VIA WHEELCHAIR TO CARE OF LUIS HER S/O. SHE IS GIVEN WRITTEN DISCHARGE INSTRUCTIONS, THAT WERE COMPUTER GENERATED AND HAND WRITTEN THE SYSTEM WAS DOWN. ALL MEDICATIONS VERIFIED WITH PATIENT AND . INSTRUCTIONS re: INSULIN IS DISCUSSED WITH PATIENT. ENCOURAGED TO CONTINUE DRINKING LOTS OF FLUIDS TO KEEP HERSELF HYDRATED AND BLOOD SUGARS UNDER CONTROL.
[2023-07-02] MEDS ORDERED: Insulin Glargine-Yfgn 100 Unit/mL 3 ML SYR SC SCH (21:00)
== END 2023-07-02 13:41 | disposition home or self-care (01) | DRG 832 ==
LOC: OBS 17:49 → BC 17:49 → OBS 21:42 → ICUE 21:43 → BC 21:43 → MEDS 06-29 10:21 → ICUE 06-30 08:31
PROVIDERS: Internal Medicine; Obstetrics & Gynecology; Student in an Organized Health Care Education/Training Program; ADMIT Family Medicine
DX: O24.414 Gestational diabetes mellitus in pregnancy, insulin controlled (principal); E87.29 Other acidosis; O99.323 Drug use complicating pregnancy, third trimester; O24.013 Pre-existing type 1 diabetes mellitus, in pregnancy, third trimester; F12.90 Cannabis use, unspecified, uncomplicated; R10.9 Unspecified abdominal pain; O26.893 Other specified pregnancy related conditions, third trimester; Z3A.28 28 weeks gestation of pregnancy; O99.013 Anemia complicating pregnancy, third trimester; O99.891 Other specified diseases and conditions complicating pregnancy; E83.39 Other disorders of phosphorus metabolism; Z98.890 Other specified postprocedural states; M54.9 Dorsalgia, unspecified; Z79.4 Long term (current) use of insulin; Z79.899 Other long term (current) drug therapy; Z88.8 Allergy status to other drugs, medicaments and biological substances; O99.283 Endocrine, nutritional and metabolic diseases complicating pregnancy, third trimester; O99.343 Other mental disorders complicating pregnancy, third trimester; E86.0 Dehydration; F41.9 Anxiety disorder, unspecified; F32.A Depression, unspecified; Z88.1 Allergy status to other antibiotic agents; R10.12 Left upper quadrant pain; R11.10 Vomiting, unspecified; R82.81 Pyuria; Z3A.29 29 weeks gestation of pregnancy; Z88.0 Allergy status to penicillin
CPT/HCPCS: 0241U; 36415; 59025; 76700; 76815; 80048; 80053; 80069; 81001; 81003; 82010; 82947; 83690; 83735; 84100; 85025; 87086; 96361; 96365; 96366; 96367; 96374; 96375; 96376; 99284-25; A9270; C1751; C9113; G0378; J1200; J1815; J2405; J2765; J2916; J3010; J3480; J7042; J7050; J7060; J7120

== ENCOUNTER → 2023-08-19 | Outpatient (CLI) | payer OTHER ==
[~2023-08-19] MED LIST changes: +FAMO20 PO; +METO10 PO
== END | disposition home or self-care (01) ==
LOC: LAB 16:38 → LAB SHORT 16:38
DX: O09.893 Supervision of other high risk pregnancies, third trimester (principal)
CPT/HCPCS: 87081; 87150

== ENCOUNTER 2023-09-02 08:19 | Inpatient (IN) | payer OTHER ==
[2023-09-02] VITALS (21 sets, daily range): BP systolic 109–162; BP diastolic 71–96
[~2023-09-02] VITALS: Ht 165.1 cm; Wt 82.0 kg
[2023-09-02] MEDS ORDERED: CeFAZolin Sodium 2,000 MG in NS 100 ML IV SCH (08:50)
[2023-09-02] MEDS ORDERED: Metoclopramide HCl 5MG / ML 2ML Vial IV ONE (08:50)
[2023-09-02] MEDS ORDERED: Lactated Ringer's 1,000 ML IV SCH ×2 (08:50→11:55)
[2023-09-02] MEDS ORDERED: Citric Acid/Sodium Citrate 30 ML BTL PO SCH (08:50)
[2023-09-02 09:57] LABS: BASOPHILS ABSOLUTE AUTO 0.08 K/mm3 (0.00-0.23); BASOPHILS PERCENT AUTO 1 % (0-2); EOSINOPHILS ABSOLUTE AUTO 0.08 K/mm3 (0.00-0.68); EOSINOPHILS PERCENT AUTO 1 % (0-6); Hematocrit 31.8 % (33.0-51.0); Hemoglobin 10.3 g/dL (11.5-16.0); IMMATURE GRAN ABSOLUTE AUTO 0.05 K/mm3 (0.00-0.10); IMMATURE GRAN PERCENT AUTO 1 % (0-1); LYMPHOCYTES ABSOLUTE AUTO 2.08 K/mm3 (0.84-5.20); LYMPHOCYTES PERCENT AUTO 21 % (21-46); MONOCYTES ABSOLUTE AUTO 0.87 K/mm3 (0.16-1.47); MONOCYTES PERCENT AUTO 9 % (4-13); Mean Corpuscular HGB 23.8 pg (26.0-34.0); Mean Corpuscular HGB Conc 32.4 g/dL (31.5-36.5); Mean Corpuscular Volume 74 fL (80-100); Mean Platelet Volume 12.4 fL (9.1-12.4); NEUTROPHILS ABSOLUTE AUTO 6.81 K/mm3 (1.96-9.15); NEUTROPHILS PERCENT AUTO 68 % (41-73); Platelet Count 192 K/mm3 (150-400); RDW Coefficient Variation 14.1 % (11.7-14.2); RDW Standard Deviation 37.4 fL (35.1-46.3); Red Blood Cell Count 4.32 M/mm3 (3.80-5.20); White Blood Cell Count 9.97 K/mm3 (4.00-11.30)
[2023-09-02 10:12] LABS: Anion Gap 12 mmol/L (3-11); Blood Urea Nitrogen 10 mg/dL (8-24); CO2, Blood 22 mmol/L (21-32); Chloride, Blood 109 mmol/L (98-108); Creatinine, Blood 0.82 mg/dL (0.40-1.00); Glucose, Blood 134 mg/dL (70-99); Sodium, Blood 139 mmol/L (136-145)
[2023-09-02 10:13] LABS: Alanine Aminotransfer (ALT/SGP 12 U/L (12-78); Albumin, Blood 2.4 g/dL (3.4-5.0); Albumin/Globulin Ratio 0.6 (0.8-1.8); Alk Phos 174 U/L (50-136); Aspartate Aminotrans (AST/SGOT 15 U/L (12-37); Bilirubin, Total 0.4 mg/dL (0.1-1.0); Bun/Creatinine Ratio 12.3 (12.0-20.0); Calcium, Blood 8.9 mg/dL (8.5-10.1); Glomerular Filtration Rate 102 (60-); Total Protein, Blood 6.4 g/dL (6.4-8.2)
[2023-09-02] MEDS ORDERED: HYDROmorphone HCl/Pf 1MG SYR IV PRN (10:20)
[2023-09-02] MEDS ORDERED: Droperidol 5 mg/2 ml Vial IV PRN (10:20)
[2023-09-02] MEDS ORDERED: Albuterol 2.5 MG/3 ML VIAL INH PRN (10:20)
[2023-09-02] MEDS ORDERED: FentaNYL Citrate 50 MCG/ML 2 ML Injection IV PRN (10:20)
[2023-09-02] MEDS ORDERED: FentaNYL Citrate 50 MCG/ML 2 ML Injection ONE (10:29)
[2023-09-02] MEDS ORDERED: Phenylephrine HCl 100 MCG/ML-NS 10MLSYR (1MG/10ML) ONE (11:03)
[2023-09-02] MEDS ORDERED: Oxytocin 10 Unit / ML Vial ONE (11:11)
[2023-09-02] MEDS ORDERED: CeFAZolin Sodium 1000 mg Vial ONE (11:11)
[2023-09-02] MEDS ORDERED: Atropine Sulfate 0.4 MG/1 ML Vial ONE (11:12)
--- NOTE | 2023-09-02 11:27 | NUR ---
09/02/23 1127 Estefany Nelson VIABLE FEMALE BORN AT 1117 WITH SPONTANEOUS CRY. APGARS 9/9. WEIGHT 7-15 ([id number]). NO CORD GASES PER DR RHODES. CORD BLOOD GIVEN TO KASEY RODRIGUEZ.
[2023-09-02] MEDS ORDERED: Ondansetron HCl 2 MG / ML 2ML Vial ONE (11:31)
[2023-09-02] MEDS ORDERED: Midazolam HCl 1MG / ML 2ML Vial ONE (11:32)
[2023-09-02] MEDS ORDERED: Lanolin Cream TOP PRN (11:45)
[2023-09-02] MEDS ORDERED: Ketorolac Tromethamine 30mg Vial ONE (11:48)
[2023-09-02] MEDS ORDERED: Rho(D) Immune Globulin 300 MCG / SYR IM SCH (11:50)
[2023-09-02] MEDS ORDERED: OxyCODONE HCL 5 MG TAB PO PRN ×2 (11:50→15:05)
[2023-09-02] MEDS ORDERED: Simethicone 80 MG Chew PO PRN (11:50)
[2023-09-02] MEDS ORDERED: Misoprostol 200 MCG Tab PR PRN (11:50)
[2023-09-02] MEDS ORDERED: Morphine Sulfate 4 MG/1 ML Injection IV PRN (11:50)
[2023-09-02] MEDS ORDERED: Carboprost Tromethamine 250 MCG/ML 1ML Amp IM PRN (11:50)
[2023-09-02] MEDS ORDERED: Ondansetron HCl 2 MG / ML 2ML Vial IV PRN (11:50)
[2023-09-02] MEDS ORDERED: DiphenhydrAMINE HCL 25 MG Cap PO PRN (11:55)
[2023-09-02] MEDS ORDERED: Magnesium Hydroxide Conc 10 ML UDC PO PRN (11:55)
[2023-09-02] MEDS ORDERED: OXYTOCIN/RINGER'S LACTATE 500 ML IV SCH (11:55)
[2023-09-02] MEDS ORDERED: Acetaminophen 500 MG Tab PO PRN (11:55)
[2023-09-02] MEDS ORDERED: Metoclopramide HCl 10 MG Tab PO PRN (12:00)
[2023-09-02] MEDS ORDERED: Promethazine HCl 25 MG Tab PO PRN (12:00)
[2023-09-02] MEDS ORDERED: Ketorolac Tromethamine 30mg Vial IV SCH (12:00)
[2023-09-02] MEDS ORDERED: Methylergonovine Maleate 0.2MG / ML 1ML Amp IM PRN (12:00)
[2023-09-02] MEDS ORDERED: Promethazine HCl 25 MG Supp PR PRN (12:00)
[2023-09-02] MEDS ORDERED: Insulin Human Lispro 100 Units/ML 3ML Syringe SC SCH ×3 (12:30→16:30)
--- NOTE | 2023-09-02 13:09 | NUR ---
"Spiritual Care | Pt. Request Pt. is awake in bed holding her . Many family are present when Pt. welcomes my visit. Pt. speaks of her cayetano, and requests that this Underwear Hemmer give a blessing for the . Listen with pastoral support, and pray for the baby, Pt. and the family. Pt. verbalized gratitude for the spiritual care visit, and welcomed this outsole handler to return."
--- NOTE | 2023-09-02 14:28 | NUR ---
1420: PT TEARFUL AND C/O PAIN. ADDITIONAL DOSE OF SYLVIA GIVEN. PT ENCOURAGED TO TRY TO CALM DOWN AND FOCUS ON BABY OR SOMETHING ELSE. K-PAD PROVIDED. FAMILY AT BEDSIDE ASSISTING WITH NB CARE.
--- NOTE | 2023-09-02 15:06 | NUR ---
1430: REPORT TO Daniel DE LA GARZA RN
[2023-09-02] MEDS ORDERED: Ibuprofen 400 MG Tab PO SCH (16:00)
--- NOTE | 2023-09-02 19:05 | NUR ---
REPORT TO AMBER RODRIGUEZ. MOTHER JUST FINISHED PUMPING AND SUCKED COLOSTROM UP WITH SYRINGE TO FEED BABY. PAIN BETTER CONTROLLED AT THIS TIME. STABLE.
[2023-09-02] MEDS ORDERED: Insulin Glargine-Yfgn 100 Unit/mL 3 ML SYR SC SCH (21:00)
[2023-09-02] MEDS ORDERED: Docusate Sodium 100 MG Cap PO SCH (21:00)
[2023-09-03] VITALS (7 sets, daily range): BP systolic 118–152; BP diastolic 79–92
--- NOTE | 2023-09-03 04:59 | NUR ---
THIS CONTROL CENTER OPERATOR GOT A LOW CBG ON PATIENT OF 61. RN AWARE. THIS CONTROL CENTER OPERATOR GOT PT A HALF OF TURKEY AND CHEESE SANDWICH AND A CUP OF APPLE JUICE.
[2023-09-03 06:26] LABS: BASOPHILS ABSOLUTE AUTO 0.05 K/mm3 (0.00-0.23); BASOPHILS PERCENT AUTO 1 % (0-2); EOSINOPHILS ABSOLUTE AUTO 0.04 K/mm3 (0.00-0.68); EOSINOPHILS PERCENT AUTO 0 % (0-6); Hematocrit 29.9 % (33.0-51.0); Hemoglobin 9.7 g/dL (11.5-16.0); IMMATURE GRAN ABSOLUTE AUTO 0.04 K/mm3 (0.00-0.10); IMMATURE GRAN PERCENT AUTO 0 % (0-1); LYMPHOCYTES ABSOLUTE AUTO 1.61 K/mm3 (0.84-5.20); LYMPHOCYTES PERCENT AUTO 15 % (21-46); MONOCYTES ABSOLUTE AUTO 0.96 K/mm3 (0.16-1.47); MONOCYTES PERCENT AUTO 9 % (4-13); Mean Corpuscular HGB Conc 32.4 g/dL (31.5-36.5); Mean Corpuscular Volume 74 fL (80-100); Mean Platelet Volume 11.9 fL (9.1-12.4); NEUTROPHILS ABSOLUTE AUTO 7.83 K/mm3 (1.96-9.15); NEUTROPHILS PERCENT AUTO 74 % (41-73); Platelet Count 176 K/mm3 (150-400); RDW Coefficient Variation 14.3 % (11.7-14.2); RDW Standard Deviation 37.9 fL (35.1-46.3); Red Blood Cell Count 4.04 M/mm3 (3.80-5.20); White Blood Cell Count 10.53 K/mm3 (4.00-11.30)
[2023-09-03] MEDS ORDERED: Gabapentin 300 MG Cap PO SCH (09:00)
[2023-09-03] MEDS ORDERED: Prenatal Vit/FE Fumarate/FA 1 Tab PO SCH (09:00)
[2023-09-03] MEDS ORDERED: Insulin Glargine-Yfgn 100 Unit/mL 3 ML SYR SC SCH (09:00)
[2023-09-03] MEDS ORDERED: Dextrose 5% 250 ML IV ONE (09:20)
--- NOTE | 2023-09-03 10:17 | NUR ---
09/03/23 0900 PT STATES THAT SHE IS NOT FEELING WELL AND REQUESTS TO HAVE HER CBG DONE, CBG IS 57. GIVEN APPLE JIUCE X 2, CHEESE AND TURKEY SANDWICH, PT TAKING JUICE YET HAS NOT EATEN YET. 919 PT REQUESTS TO HAVE HER CBG RECHECKED BECAUSE SHE IS NOT FEELING ANY BETTER AND SAYING "I JUST DONT FEEL RIGHT' CBG 68, AGAIN, ENCOURAGED TO EAT CHEESE, TURKEY AND CRACKERS AND HER BREAKFAST TRAY, YET SHE SAYS THAT HER FRIEND IS GOING TO GET HER BREAKFAST FROM [employer]. 1000 PT STATES THAT SHE IS FEELING A BIT BETTER, HAS EATEN 2 CHEDDER CHEESE PACKETS NAD WORKING ON HER BREAKFAST SANDWICH BROUGHT BY FRIEND. 1 HOUR REPEAT CBG IS 101
--- NOTE | 2023-09-03 12:57 | NUR ---
09/03/23 1245 to nursery via wc to see baby
[2023-09-03] MEDS ORDERED: Dextrose 5% 250 ML IV SCH (13:40)
--- NOTE | 2023-09-03 14:04 | NUR ---
09/03/23 1410 pt called for pain medicine after returning from nursery, crying ans states her pain is 8/10. pt denies feeling pain other than incisional and her lower back (has k-pad applied). pt states that she had a short nap earlier, yet continues to be tired. given dose of roxicodone and phenergan 25mg po
--- NOTE | 2023-09-03 17:25 | NUR ---
09/03/23 1700 RN CALLED TO PTS ROOM AFTER SHE WOKE UP. STATES SHE FEELS LIKE SHE SLEPT REALLY WELL, YET READY FOR PAIN MEDS. BEFORE GIVEN SNACK WITH HER PAIN MEDS, AC CBG DONE AND WAS 55. PT STATES THAT SHE DOES NOT FEEL IF IT IS LOW, AND WOULD LIKE ONLY A JUICE AND TURKEY SANDWICH AND TO GET UP TO TO THE BATHROOM. TOLERATED GETTING UP WITH A LITTLE ASSISTANCE FROM HER SO, SHELLY AND THEN SAT ON THE SIDE OF BED TO EAT HER DINNER AND TAKE HER MEDS
[2023-09-04] VITALS (8 sets, daily range): BP systolic 130–144; BP diastolic 77–96
--- NOTE | 2023-09-04 08:04 | NUR ---
IN TO CHECK ON PT THIS MORNING. CB, APPLE JUICE PROVIDED AND DR. RHODES NOTIFIED PER PROTOCOL. PT IS NOW SITTING UP AT SIDE OF BED, SHE DIDN'T WANT HER BREAKFAST, BUT WAS PROVIDED WITH A TURKEY SANDWICH PER REQUEST. PT REPORTS 8/10 INCISIONAL PAIN, SCHEDULED AND PRN MEDS GIVEN. WILL RECHECK PT'S CBG AND COMPLETE ASSESSMENT ONCE PT IS FINISHED EATING.
--- NOTE | 2023-09-04 09:05 | NUR ---
RECHECK CB. PT REPORTS HER PAIN HAS ALSO IMPROVED SINCE GOING TO THE BATHROOM. PT HAS FINISHED EATING, DID NOT EAT MUCH OF HER TURKEY SANDWICH, AND IS READY TO TAKE A NAP NOW. PT ENCOURAGED TO COMPLETE PP DEPRESSION SCREEN.
--- NOTE | 2023-09-04 14:08 | NUR ---
PT IS SLEEPING SOUNDLY AT THIS TIME, RR:16. WILL ALLOW FOR REST AND HOLD GABAPENTIN AT THIS TIME.
--- NOTE | 2023-09-04 15:54 | NUR ---
PT HEARD CRYING, IN TO CHECK ON HER AND SHE REQUESTS PAIN MEDICATION FOR 8/10 INCISIONAL PAIN. MEDS GIVEN PER EMAR. PT ALSO REPORTS FEELING LIKE HER BLOOD SUGAR IS LOW (LIGHT-HEADED AND SHAKY) CB. APPLE JUICE GIVEN ALONG WITH CHEDDAR CHEESE AND PRETZEL WITH HUMMUS. PT'S VISITOR IS ALSO LEAVING AT THIS TIME TO GO GET HER FOOD. WILL RE-CHECK BLOOD SUGAR IN ~15 MINUTES.
--- NOTE | 2023-09-04 16:41 | NUR ---
PT WAS FEELING BETTER, BUT WANTED TO USE BATHROOM BEFORE I RE-CHECKED HER BLOOD SUGAR. RECHECK CB AFTER SNACKS. PT IS NOW EATING SMITH BURRITO FROM [employer]. PT ASKS ABOUT WHEN BABY WILL RETURN TO HER ROOM, JAZMYN IS STILL ON IV DEXTROSE AT 5ML/HR AND IS BEING WEANED BY 2ML EVERY 2 HOURS LONGS SUGARS ARE STAYING >60 (PER NURSERY NURSE). JAZMYN SHOULD RETURN TO MOM'S ROOM TONIGHT THOUGH; PT HAPPY ABOUT THE UPDATE.
[2023-09-04] MEDS ORDERED: Insulin Glargine-Yfgn 100 Unit/mL 3 ML SYR SC SCH (21:00)
[2023-09-05 00:21] VITALS: BP 136/93
[2023-09-05 04:49] VITALS: BP 133/92
[2023-09-05 07:27] VITALS: BP 138/90
[2023-09-05] MEDS ORDERED: OxyCODONE HCL 5 MG TAB PO PRN (08:55)
--- NOTE | 2023-09-05 09:43 | NUR ---
MESSAGE LEFT FOR SHELLY Orlando IN CARE MANAGEMENT TO ASSESS PT FOR EDPS SCORE OF 14. PROVIDER HAS BEEN NOTIFIED.
--- NOTE | 2023-09-05 11:22 | NUR ---
DISCHARGE INSTRUCTIONS, WRITTEN AND VERBAL, GIVEN TO PT. ANSWERED ALL QUESTIONS AND CONCERNS. IV DISCONTINUED. CARE MANAGEMENT RESULT COMPLETED FOR EDPS OF 14, CLEARED FOR D/C. PUMP PRESCRIPTION GIVEN TO PT FOR FULLOW UP APPOINTMENT THAT IS SCHEDULED. RETURNED ALL PERSONAL BELONGINGS. PT IS DISCHARGED HOME, DRIVEN BY S.O.
--- NOTE | 2023-09-08 10:41 | NUR ---
SCHEDULED FOR PPFU TODAY 09/07 @ 0900 - NO SHOW TRIED TO CALL PHONE NOT WORKING ONLY BUSY SIGNAL - WILL NOTIFY DR ARCOS NO SHOW
== END 2023-09-05 11:30 | disposition home or self-care (01) | DRG 786 ==
LOC: BC 08:28
PROVIDERS: ADMIT Obstetrics & Gynecology
PROC: 10D00Z1 Extraction of Products of Conception, Low, Open Approach (ICD-10-PCS; principal; 2023-09-02 10:00)
DX: O34.211 Maternal care for low transverse scar from previous cesarean delivery (principal); O24.02 Pre-existing type 1 diabetes mellitus, in childbirth; O99.344 Other mental disorders complicating childbirth; F41.9 Anxiety disorder, unspecified; Z3A.38 38 weeks gestation of pregnancy; Z37.0 Single live birth; O99.02 Anemia complicating childbirth
CPT/HCPCS: 36415; 36416; 59025; 80053; 82947; 85025; 86850; 86900; 86901; 86923; A9270; C1751; J0461; J0690; J1815; J1885; J2250; J2270; J2371; J2405; J2590; J2765; J3010; J7120

== ENCOUNTER 2023-11-29 23:41 | Emergency (ER) | payer OTHER ==
[~2023-11-29] VITALS: Ht 165.1 cm; Wt 65.8 kg
[2023-11-30] MEDS ORDERED: Ketorolac Tromethamine 30mg Vial IM ONE (02:05)
[2023-11-30] MEDS ORDERED: Clindamycin HCl 150 MG Cap PO ONE (02:30)
[2023-11-30] MEDS ORDERED: OxyCODONE 5 mg/Acetamin 325 mg TABLET PO ONE (02:30)
[2023-11-30] MEDS ORDERED: Dexamethasone Sod Phos 10 MG/ML 1ML VIAL PO ONE (02:30)
[2023-11-30 03:00] VITALS: BP 127/88
[2023-11-30] MEDS ORDERED: CLIN300 PO (03:00)
[2023-11-30] MEDS ORDERED: Percocet 5-3251 EACH PO (03:00)
== END 2023-11-30 03:05 | disposition home or self-care (01) ==
LOC: ER 23:41
DX: K08.89 Other specified disorders of teeth and supporting structures (principal); R60.0 Localized edema; E10.9 Type 1 diabetes mellitus without complications; Z88.0 Allergy status to penicillin; Z88.1 Allergy status to other antibiotic agents; Z79.4 Long term (current) use of insulin; Z79.899 Other long term (current) drug therapy
CPT/HCPCS: 96372; 99282-25; A9270; J1100; J1885

== ENCOUNTER 2023-12-29 17:07 | Emergency (ER) | payer OTHER ==
[~2023-12-29] VITALS: Ht 165.1 cm; Wt 65.8 kg
[~2023-12-29 17:07] MED LIST changes: +CLIN300 PO; +Percocet 5-3251 EACH PO
[2023-12-29 17:25] VITALS: BP 145/96
[2023-12-29] MEDS ORDERED: CLIN300 PO (17:29)
[2023-12-29] MEDS ORDERED: HYDR1TAB94 PO (17:29)
== END 2023-12-29 17:28 | disposition home or self-care (01) ==
LOC: ER 17:07
DX: K04.7 Periapical abscess without sinus (principal); E10.9 Type 1 diabetes mellitus without complications; Z79.4 Long term (current) use of insulin; Z79.899 Other long term (current) drug therapy; Z88.1 Allergy status to other antibiotic agents; Z88.0 Allergy status to penicillin
CPT/HCPCS: 99282

== ENCOUNTER → 2024-01-15 | Emergency (ER) | payer OTHER ==
[~2024-01-15] VITALS: Ht 165.1 cm; Wt 68.0 kg
[2024-01-15 10:49] VITALS: BP 169/103
== END ==
LOC: ER 10:28
DX: K04.7 Periapical abscess without sinus (principal); E10.9 Type 1 diabetes mellitus without complications; Z79.4 Long term (current) use of insulin; Z79.899 Other long term (current) drug therapy; Z88.0 Allergy status to penicillin; Z88.1 Allergy status to other antibiotic agents
CPT/HCPCS: 99282

== ENCOUNTER 2024-02-03 09:21 | Emergency (ER) | payer OTHER ==
[~2024-02-03] VITALS: Ht 167.6 cm; Wt 59.0 kg
[2024-02-03 10:00] VITALS: BP 161/85
[2024-02-03] MEDS ORDERED: OxyCODONE HCL 5 MG TAB PO ONE (11:50)
[2024-02-03] MEDS ORDERED: CLIN300 PO (12:14)
[2024-02-03] MEDS ORDERED: Percocet 5-3251 EACH PO (12:14)
== END 2024-02-03 12:23 | disposition home or self-care (01) ==
LOC: ER 09:21
DX: K04.7 Periapical abscess without sinus (principal); K04.01 Reversible pulpitis; E10.9 Type 1 diabetes mellitus without complications; Z88.0 Allergy status to penicillin; Z88.1 Allergy status to other antibiotic agents; Z79.4 Long term (current) use of insulin
CPT/HCPCS: 99282; A9270

== ENCOUNTER 2024-02-05 07:23 | Inpatient (IN) | payer OTHER ==
[~2024-02-05] VITALS: Ht 165.1 cm; Wt 65.4 kg
[2024-02-05] MEDS ORDERED: Lactated Ringer's 1,000 ML IV ONE ×2 (07:55→10:30)
[2024-02-05] MEDS ORDERED: Ondansetron HCl 2 MG / ML 2ML Vial IV ONE (08:00)
[2024-02-05] MEDS ORDERED: HYDROmorphone HCl/Pf 1MG SYR IV ONE ×4 (08:00→14:40)
[2024-02-05] MEDS ORDERED: Ketorolac Tromethamine 30mg Vial IV ONE ×2 (08:00→10:30)
[2024-02-05 08:25] LABS: BASOPHILS ABSOLUTE AUTO 0.11 K/mm3 (0.00-0.23); BASOPHILS PERCENT AUTO 1 % (0-2); EOSINOPHILS ABSOLUTE AUTO 0.16 K/mm3 (0.00-0.68); EOSINOPHILS PERCENT AUTO 2 % (0-6); Hematocrit 43.7 % (33.0-51.0); Hemoglobin 13.8 g/dL (11.5-16.0); IMMATURE GRAN ABSOLUTE AUTO 0.02 K/mm3 (0.00-0.10); IMMATURE GRAN PERCENT AUTO 0 % (0-1); LYMPHOCYTES ABSOLUTE AUTO 1.45 K/mm3 (0.84-5.20); LYMPHOCYTES PERCENT AUTO 19 % (21-46); MONOCYTES ABSOLUTE AUTO 0.45 K/mm3 (0.16-1.47); MONOCYTES PERCENT AUTO 6 % (4-13); Mean Corpuscular HGB Conc 31.6 g/dL (31.5-36.5); Mean Corpuscular Volume 85 fL (80-100); NEUTROPHILS ABSOLUTE AUTO 5.44 K/mm3 (1.96-9.15); NEUTROPHILS PERCENT AUTO 71 % (41-73); RDW Coefficient Variation 13.1 % (11.7-14.2); RDW Standard Deviation 39.9 fL (35.1-46.3); Red Blood Cell Count 5.12 M/mm3 (3.80-5.20); White Blood Cell Count 7.63 K/mm3 (4.00-11.30)
[2024-02-05 08:41] LABS: Base Excess Venous -6.6 mmol/L; Bicarbonate Venous 19.9 mmol/L (24.0-30.0); PCO2 Venous 31.9 mmHg (38-42); pH Blood Venous 7.37 (7.34-7.37)
[2024-02-05 09:19] LABS: Albumin, Blood 3.6 g/dL (3.4-5.0); Beta-hydroxybutyrate 31.8 mg/dL (0.2-2.8); Bilirubin, Total 0.5 mg/dL (0.1-1.0); Bun/Creatinine Ratio 13.4 (12.0-20.0); Creatinine, Blood 0.52 mg/dL (0.40-1.00); Globulin, Blood 3.6 g/dL (2.2-4.0); Magnesium, Blood 1.7 mg/dL (1.6-2.4); Potassium, Blood 4.1 mmol/L (3.5-5.5); Total Protein, Blood 7.2 g/dL (6.4-8.2)
[2024-02-05] MEDS ORDERED: CefTRIAXone Sodium 1,000 MG in NS 50 ML IV ONE (10:30)
[2024-02-05] MEDS ORDERED: Morphine Sulfate 4 MG/1 ML Injection IV ONE ×2 (10:30→12:15)
[2024-02-05] MEDS ORDERED: HYDROcodone 5-APAP 325 TAB PO ONE (11:25)
[2024-02-05] MEDS ORDERED: Amoxicillin/Clavulanate K 875 MG Tab PO ONE (11:25)
[2024-02-05] MEDS ORDERED: PROM12.5S PR (11:35)
[2024-02-05] MEDS ORDERED: HYDR1TAB94 PO (11:35)
[2024-02-05] MEDS ORDERED: AMOCLA875 PO (11:35)
[2024-02-05] MEDS ORDERED: ONDA4ODT MM (11:35)
[2024-02-05] MEDS ORDERED: REGLAN1013 PO (11:35)
[2024-02-05] MEDS ORDERED: Metoclopramide HCl 5MG / ML 2ML Vial IV ONE (11:45)
[2024-02-05] MEDS ORDERED: DiphenhydrAMINE HCl 50 MG/ML 1ML Vial IV ONE (12:15)
[2024-02-05 13:08] LABS: Calcium, Ionized (POC) 1.14 mmol/L (1.10-1.46); Chloride (POC) 101 mmol/L (98-108); Creatinine (POC) 0.5 mg/dL (0.6-1.0); Glucose (ISTAT POC) 163 mg/dL (70-99); Hemoglobin (POC) 12.6 g/dL (12.0-16.0); Potassium (POC) 4.4 mmol/L (3.5-5.5); Sodium (POC) 135 mmol/L (135-148); Total CO2 (POC) 25 mmol/L (21-32)
[2024-02-05] MEDS ORDERED: Gabapentin 300 MG Cap PO ONE (15:25)
[2024-02-05] MEDS ORDERED: FLU VACC TS2024-25(6MOS UP)/PF 45 MCG/0.5 ML SYRINGE IM ONE (15:35)
[2024-02-05] MEDS ORDERED: OxyCODONE HCL 5 MG TAB PO PRN (15:45)
[2024-02-05] MEDS ORDERED: Acetaminophen 325 MG TABLET PO PRN (15:45)
[2024-02-05] MEDS ORDERED: Metoclopramide HCl 5MG / ML 2ML Vial IV PRN (15:45)
[2024-02-05] MEDS ORDERED: Ondansetron HCl 2 MG / ML 2ML Vial IV PRN (15:45)
[2024-02-05] MEDS ORDERED: Naloxone HCl 0.4MG / ML 1ML Vial IV PRN (15:50)
[2024-02-05] MEDS ORDERED: NS 1,000 ML IV SCH (15:50)
[2024-02-05] MEDS ORDERED: Docusate Sodium/Senna 1 Tab PO PRN (15:50)
[2024-02-05] MEDS ORDERED: HYDROmorphone 1 MG/ML 30 ML Bag IV PRN (16:00)
[2024-02-05] MEDS ORDERED: Ketorolac Tromethamine 30mg Vial IV PRN (16:00)
[2024-02-05 17:53] VITALS: BP 144/90
[2024-02-05] MEDS ORDERED: IBUP200 PO (17:55)
[2024-02-05] MEDS ORDERED: Insulin Regular 100 UNIT/ML 10ML Vial SC SCH (18:00)
[2024-02-05 19:23] VITALS: BP 130/100
--- NOTE | 2024-02-05 19:39 | NUR ---
SHIFT SUMMARY- PT IS A 24YO FEMALE ADMITTED THROUGH THE ED FOR INRETRACTABLE PAIN. SHE WAS STARTED ON THE BILL RECAPITULATION CLERK PUMP UPON ARRIVAL TO MEDICAL FLOOR WELL IV FLUIDS. PUMP WAS SET UP WITH MICHAEL MALDONADO. PT PAIN APPEARED TO BE WELL MANAGED, THEN THE BILL RECAPITULATION CLERK HIT THE 1 HOUR LIMIT JUST BEFORE SHIFT CHANGE, THE PT PAIN BECAME UNCONTROLLED WITHIN 15 MINUTES. NIGHT RN AT THE BESIDE WITH THIS RN, BEDSIDE REPORT COMPLETED, NIGHT RN IS PROVIDING THE PT WITH BREAKTHROUGH PAIN MEDS AT THIS TIME. RT AT THE BEDSIDE SETTING UP BIOX AND CO2 MONITOR.
[2024-02-05] MEDS ORDERED: Insulin Glargine-Yfgn 100 Unit/mL 3 ML SYR SC SCH (21:00)
[2024-02-05] MEDS ORDERED: Lactobacil 2-S.Thermo-Bifido 1 1 Cap PO SCH (21:00)
[2024-02-05] MEDS ORDERED: Amoxicillin/Clavulanate K 875 MG Tab PO SCH (21:00)
--- NOTE | 2024-02-06 00:04 | NUR ---
NURSE NOTE PATIENT CBG WAS 67 AT MIDNIGHT CHECK. PATIENT GIVEN JUICE AND WILL RECHECK.
[2024-02-06] MEDS ORDERED: Dextrose 50% 50 ML Vial IV ONE (01:40)
[2024-02-06] MEDS ORDERED: D5W-1/2NS 1,000 ML IV SCH ×2 (01:40→19:05)
--- NOTE | 2024-02-06 01:54 | NUR ---
NURSE NOTE OBTAINED CMP PANEL WELL DEXTROSE ORDER FOR FLUIDS. CONFERRED WITH ICU CHARGE ABOUT PATIENT.
[2024-02-06 02:11] LABS: BASOPHILS ABSOLUTE AUTO 0.08 K/mm3 (0.00-0.23); BASOPHILS PERCENT AUTO 1 % (0-2); EOSINOPHILS ABSOLUTE AUTO 0.13 K/mm3 (0.00-0.68); EOSINOPHILS PERCENT AUTO 2 % (0-6); Hematocrit 36.6 % (33.0-51.0); IMMATURE GRAN ABSOLUTE AUTO 0.05 K/mm3 (0.00-0.10); IMMATURE GRAN PERCENT AUTO 1 % (0-1); LYMPHOCYTES ABSOLUTE AUTO 1.94 K/mm3 (0.84-5.20); LYMPHOCYTES PERCENT AUTO 24 % (21-46); MONOCYTES ABSOLUTE AUTO 0.75 K/mm3 (0.16-1.47); MONOCYTES PERCENT AUTO 9 % (4-13); Mean Corpuscular HGB 26.6 pg (26.0-34.0); Mean Corpuscular HGB Conc 32.8 g/dL (31.5-36.5); Mean Corpuscular Volume 81 fL (80-100); NEUTROPHILS ABSOLUTE AUTO 5.03 K/mm3 (1.96-9.15); NEUTROPHILS PERCENT AUTO 63 % (41-73); Platelet Count 290 K/mm3 (150-400); RDW Coefficient Variation 13.2 % (11.7-14.2); RDW Standard Deviation 38.6 fL (35.1-46.3); Red Blood Cell Count 4.51 M/mm3 (3.80-5.20); White Blood Cell Count 7.98 K/mm3 (4.00-11.30)
[2024-02-06 02:19] LABS: Albumin, Blood 3.2 g/dL (3.4-5.0); Bilirubin, Total 0.3 mg/dL (0.1-1.0); Bun/Creatinine Ratio 13.4 (12.0-20.0); Calcium, Blood 8.7 mg/dL (8.5-10.1); Creatinine, Blood 0.52 mg/dL (0.40-1.00); Globulin, Blood 3.1 g/dL (2.2-4.0); Potassium, Blood 4.1 mmol/L (3.5-5.5); Total Protein, Blood 6.3 g/dL (6.4-8.2)
[2024-02-06 04:26] VITALS: BP 132/96
--- NOTE | 2024-02-06 06:16 | NUR ---
SHIFT SUMMARY PATIENT IS ALERT AND ORIENTED. PATIENT HAS HAD BLOOD SUGAR RANGING FROM 450-68 THIS SHIFT. PATIENT HAS HAD INTRACTABLE PAIN THIS SHIFT. PATIENT HAS VOMITTED UNMEASURABLE AMOUNTS THIS SHIFT. PATIENT HAS HAD NAUSEA THIS SHIFT. DIRECTOR CARDIOVASCULAR PUMP CLEARED WITH CHARGE NURSE. PATIENT HAS BEEN MEDICATED PRN WITH PAIN MEDS FOR BREAKTHROUGH PAIN IN ADDITION TO DIRECTOR CARDIOVASCULAR. BED IN LOCKED AND LOWEST POSITON. CALL LIGHT IN PLACE.
[2024-02-06 07:22] VITALS: BP 133/102
[2024-02-06] MEDS ORDERED: Enoxaparin 40 MG/0.4 ML SYR SC SCH (09:00)
[2024-02-06] MEDS ORDERED: Gabapentin 300 MG Cap PO SCH (09:00)
[2024-02-06] MEDS ORDERED: Ketorolac Tromethamine 30mg Vial IV SCH (12:10)
[2024-02-06] MEDS ORDERED: NS 500 ML IV SCH ×2 (12:20→19:05)
[2024-02-06] MEDS ORDERED: Piperacillin/Tazobactam Sod 3.375 GM in NS 100 ML IV SCH (12:51)
[2024-02-06 17:36] VITALS: BP 125/90
[2024-02-06 19:35] VITALS: BP 126/86
--- NOTE | 2024-02-06 19:59 | NUR ---
SHIFT SUMMARY- PT ALERT AND ORIENTED. SPOKE TO DR NEVES THIS MORNING AND HE CHANGED THE RATE OF THE CONTINUIOUS INFUSION FOR HER STERILE PREPARATION TECHNICIAN. SEE EMAR FOR DETAILS. PT WAS IN PAIN A LOT T/O THE SHIFT. A FEW TIMES THE PUMPS ALARMED FOR CO2 BUT IT WAS POOR READINGS. PT IS ON CONT BIOX AT THIS TIME. PT IS IN BED CALL LIGHT IN REACH, STERILE PREPARATION TECHNICIAN BUTTON IS WITHIN REACH. PT SLEEPING SOUNDLY, FOR THE FIRST TIME THIS SHIFT. SHE WOKE TO STAFF VOICES AND TOUCH, NOTED HER LEFT SIE OF HER FACE AND LEFT EYE SEEM TO HAVE POSITIONAL EDEMA. CALLED DR JONES ABOUT THE DEPENDENT EDEMA, ORDER FOR NS CHANGED TO 10ML/HR AND THE RATE FOR THE D5 AND 1/2NS REDUCED TO 50ML/HR. NIGHT RN AWARE OF THE CHANGES, DR NEVES WILL BE MAKING THE CHANGES. IV ABX RUNNING SECONDARY, NIGHT RN WILL ADJUST THE RATE OF D5 ONCE COMPLETED. PT STATES HER PAIN IS WELL MANAGED NOW. 1800 TORADOL NOT GIVEN THE PT WAS SLEEPING SOUNDLY. PASSED IT ON TO THE NIGHT RN ONCE ABX INFUSION IS COMPLETED SHE CAN REASSESS NEED.
[2024-02-07 03:26] VITALS: BP 131/90
--- NOTE | 2024-02-07 03:31 | NUR ---
SHIFT SUMMARY PT ALERT ORIENTED CALLS APPROPRIATELY. HAS BEEN CALM AND COOPERATIVE THIS SHIFT. GETS UP AD PAPO IN HER ROOM. HER D5 1/2 NS WAS CHANGED TO 50. AT 0030 PT CALLED ME INTO THE ROOM AND STATED THAT HER PAINS MUCH BETTER AND THE MEDS ARE MAKING HER VERY SICK TO HER STOMACHE AND ASKED ME TO STOP THE DILAUDID PATROL DEPUTY SHERIFF. I EXPLAINED TO HER THAT HER PAIN MAY GET ALOT WORSE WITH IT STOPPED BUT SHE INSISTED THAT I STOP IT ANYWAY R/T HER NAUSEA. AT 0 I TURNED OFF THE DILAUDID PATROL DEPUTY SHERIFF AFTER GIVING HER HER TORADOL. SHE WENT TO SLEEP AFTER THAT AND HAS HAD NO FURTHER C/O PAIN OR NEEDING TO HAVE THE PATROL DEPUTY SHERIFF RESTARTED. I GAVE HER REGLAN AND ZOFRAN TO HELP WITH THE NAUSEA. VSS ON RA SATTING AT 95%. FS DONE Q 4HR WAS 268 AND 282. REMAINS ON A CONTINUOUS PULSE OX. CONTINUES ON ZOSYN Q 6HR. SHES RESTING IN BED AT THIS TIME WITH CALL LIGHT IN REACH
[2024-02-07 06:11] LABS: BASOPHILS ABSOLUTE AUTO 0.07 K/mm3 (0.00-0.23); BASOPHILS PERCENT AUTO 1 % (0-2); EOSINOPHILS ABSOLUTE AUTO 0.14 K/mm3 (0.00-0.68); EOSINOPHILS PERCENT AUTO 2 % (0-6); Hematocrit 35.3 % (33.0-51.0); Hemoglobin 11.5 g/dL (11.5-16.0); IMMATURE GRAN ABSOLUTE AUTO 0.03 K/mm3 (0.00-0.10); IMMATURE GRAN PERCENT AUTO 0 % (0-1); LYMPHOCYTES ABSOLUTE AUTO 1.86 K/mm3 (0.84-5.20); LYMPHOCYTES PERCENT AUTO 22 % (21-46); MONOCYTES ABSOLUTE AUTO 0.74 K/mm3 (0.16-1.47); MONOCYTES PERCENT AUTO 9 % (4-13); Mean Corpuscular HGB 26.8 pg (26.0-34.0); Mean Corpuscular HGB Conc 32.6 g/dL (31.5-36.5); Mean Corpuscular Volume 82 fL (80-100); Mean Platelet Volume 10.7 fL (9.1-12.4); NEUTROPHILS ABSOLUTE AUTO 5.46 K/mm3 (1.96-9.15); NEUTROPHILS PERCENT AUTO 66 % (41-73); Platelet Count 264 K/mm3 (150-400); RDW Coefficient Variation 13.1 % (11.7-14.2); RDW Standard Deviation 38.9 fL (35.1-46.3); Red Blood Cell Count 4.29 M/mm3 (3.80-5.20)
[2024-02-07 06:30] LABS: Albumin, Blood 2.8 g/dL (3.4-5.0); Albumin/Globulin Ratio 0.9 (0.8-1.8); Bilirubin, Total 0.4 mg/dL (0.1-1.0); Bun/Creatinine Ratio 4.9 (12.0-20.0); Calcium, Blood 8.7 mg/dL (8.5-10.1); Creatinine, Blood 0.61 mg/dL (0.40-1.00); Globulin, Blood 3.1 g/dL (2.2-4.0); Potassium, Blood 4.2 mmol/L (3.5-5.5); Total Protein, Blood 5.9 g/dL (6.4-8.2)
[2024-02-07 07:19] VITALS: BP 132/99
[2024-02-07] MEDS ORDERED: OxyCODONE 10/Acetamin 325 TABLET PO PRN (09:45)
[2024-02-07] MEDS ORDERED: Ketorolac Tromethamine 30mg Vial IV PRN (10:43)
[2024-02-07] MEDS ORDERED: LevoFLOXacin 750 MG Tab PO SCH (11:50)
[2024-02-07] MEDS ORDERED: Ibuprofen 600 MG Tab PO PRN (11:50)
[2024-02-07] MEDS ORDERED: Ibuprofen 600 MG Tab PO ONE (11:50)
[2024-02-07] MEDS ORDERED: Ondansetron 4 MG SoluTab MM PRN (11:55)
--- NOTE | 2024-02-07 11:59 | NUR ---
CALLED DR NEVES- PT EXPRESSED CONCERN THAT SHE HAS NO CHILDCARE FOR HER 3 CHILDREN TOMORROW. SHE WOULD LIKE TO KNOW IF ARRANGEMENTS CAN BE MADE TO GET HER DISCHARGED HOME TODAY, IN [place] OF THE PLANNED TOMORROW. PT JUST RECIEVED THE NEW HIGHER DOSE OF PAIN MEDS, RECIEVED AN ORDER FOR PO IBUPROFEN PRN WITH THE FIRST DOSE NOW. ESTRELLITA DEFAULTED TO START TOMORROW, RECIEVED ORDER TO CHANGE THE START TIME TO NOW. PT HAS A FRIEND BRINGING HER FOOD, SHE STATES HER APPETITE IS POOR BECAUSE THE FOOD IS NOT GOOD. WILL CONT TO MONITOR AND MEDICATE THE PT SHE NEEDS FOR ADEQUATE PAIN MANAGEMENT.
[2024-02-07] MEDS ORDERED: Insulin Human Lispro 100 Units/ML 3ML Syringe SC SCH (12:00)
[2024-02-07] MEDS ORDERED: Gabapentin 100 MG Cap PO SCH (13:00)
[2024-02-07] MEDS ORDERED: MetroNIDAZOLE 500 MG Tab PO SCH (14:00)
[2024-02-07 16:06] VITALS: BP 141/99
[2024-02-07] MEDS ORDERED: METO5A PO (17:04)
[2024-02-07] MEDS ORDERED: LEVO750 PO (17:05)
[2024-02-07] MEDS ORDERED: Percocet 10-321 EACH PO (17:05)
[2024-02-07] MEDS ORDERED: METR500 PO (17:07)
[2024-02-07] MEDS ORDERED: NARCAN4 M1 (17:10)
[2024-02-07] MEDS ORDERED: VISBIOME 112.51 EACH PO (17:11)
--- NOTE | 2024-02-07 18:32 | NUR ---
DISCHARGE NOTE- PT WAS GIVEN VERBAL AND WRITTEN DISCHARGE INSTRUCTIONS AND ACKNOWLEDGED UNDERSTANDING OF THEM. IV'S DC'D PRIOR TO DISCHARGE. PT MEDICATED FOR PAIN PRIOR TO DISCHARGE. PT ESCORTED OUT VIA WC BY THE MANAGER EQUIPMENT NO S&S OF DISTRESS NOTED AT THE TIME OF DISCHARGE.
[2024-02-08] MEDS ORDERED: LevoFLOXacin 750 MG Tab PO SCH (09:00)
== END 2024-02-07 18:01 | disposition home or self-care (01) | DRG 158 ==
LOC: ER 07:23 → MEDS 17:32
PROVIDERS: Internal Medicine; Student in an Organized Health Care Education/Training Program; ADMIT Family Medicine
DX: K02.7 Dental root caries (principal); E87.29 Other acidosis; R65.10 Systemic inflammatory response syndrome (SIRS) of non-infectious origin without acute organ dysfunction; E86.0 Dehydration; T73.0XXA Starvation, initial encounter; Z88.1 Allergy status to other antibiotic agents; Z88.8 Allergy status to other drugs, medicaments and biological substances; E10.649 Type 1 diabetes mellitus with hypoglycemia without coma; Z79.4 Long term (current) use of insulin; Z79.891 Long term (current) use of opiate analgesic; Z79.2 Long term (current) use of antibiotics; Z98.890 Other specified postprocedural states; K04.7 Periapical abscess without sinus; K04.01 Reversible pulpitis; E10.9 Type 1 diabetes mellitus without complications; Z88.0 Allergy status to penicillin
CPT/HCPCS: 36415; 70487; 80047; 80053; 82010; 82803; 82947; 83735; 84703; 85014; 85025; 93005; 93010; 94762; 96361; 96374-59; 96375; 96376; 99282; 99285-25; A9270; J1171; J1200; J1815; J1885; J2270; J2405; J2543; J2765; J7030; J7042; J7120; Q9967

== ENCOUNTER 2024-02-09 17:46 | Inpatient (IN) | payer OTHER ==
[~2024-02-09] VITALS: Ht 165.1 cm; Wt 63.7 kg
[~2024-02-09 17:46] MED LIST changes: +AMOCLA875 PO; +IBUP200 PO; +LEVO750 PO; +METO5A PO; +METR500 PO; +NARCAN4 M1; +PROM12.5S PR; +Percocet 10-321 EACH PO; +REGLAN1013 PO; +VISBIOME 112.51 EACH PO
[2024-02-09 19:14] LABS: Base Excess Venous -11.4 mmol/L; Bicarbonate Venous 16.4 mmol/L (24.0-30.0); PCO2 Venous 32.9 mmHg (38-42); pH Blood Venous 7.28 (7.34-7.37)
[2024-02-09 19:17] LABS: BASOPHILS ABSOLUTE AUTO 0.08 K/mm3 (0.00-0.23); BASOPHILS PERCENT AUTO 1 % (0-2); EOSINOPHILS ABSOLUTE AUTO 0.05 K/mm3 (0.00-0.68); EOSINOPHILS PERCENT AUTO 1 % (0-6); Hematocrit 43.2 % (33.0-51.0); Hemoglobin 13.7 g/dL (11.5-16.0); IMMATURE GRAN ABSOLUTE AUTO 0.04 K/mm3 (0.00-0.10); IMMATURE GRAN PERCENT AUTO 0 % (0-1); LYMPHOCYTES ABSOLUTE AUTO 0.94 K/mm3 (0.84-5.20); LYMPHOCYTES PERCENT AUTO 9 % (21-46); MONOCYTES ABSOLUTE AUTO 0.51 K/mm3 (0.16-1.47); MONOCYTES PERCENT AUTO 5 % (4-13); Mean Corpuscular HGB 26.4 pg (26.0-34.0); Mean Corpuscular HGB Conc 31.7 g/dL (31.5-36.5); Mean Corpuscular Volume 83 fL (80-100); Mean Platelet Volume 10.8 fL (9.1-12.4); NEUTROPHILS ABSOLUTE AUTO 8.33 K/mm3 (1.96-9.15); NEUTROPHILS PERCENT AUTO 84 % (41-73); Platelet Count 354 K/mm3 (150-400); RDW Coefficient Variation 13.2 % (11.7-14.2); RDW Standard Deviation 40.3 fL (35.1-46.3); Red Blood Cell Count 5.18 M/mm3 (3.80-5.20); White Blood Cell Count 9.95 K/mm3 (4.00-11.30)
[2024-02-09] MEDS ORDERED: NS 1,000 ML IV SCH ×2 (19:25→20:25)
[2024-02-09] MEDS ORDERED: Ondansetron HCl 2 MG / ML 2ML Vial IV ONE (19:25)
[2024-02-09 19:28] LABS: Source, Urine Voided
[2024-02-09 19:30] LABS: Appearance, Urine Clear (Clear); Bilirubin, Urine Neg (Neg); Blood, Urine Neg (Neg); Glucose Qualitative, Urine 4+ (Neg); Ketones, Urine 4+ (Neg); Leukocyte Esterase, Urine Neg (Neg); Nitrite, Urine Neg (Neg); Protein, Urine Neg (Neg); Specific Gravity, Urine 1.015 (1.003-1.022); Urobilinogen, Urine NORM (Normal)
[2024-02-09] MEDS ORDERED: FentaNYL Citrate 50 MCG/ML 2 ML Injection IV ONE ×2 (19:35→21:20)
[2024-02-09 19:37] LABS: Color, Urine Pale Yellow (P-Yellow)
[2024-02-09 20:06] LABS: Albumin, Blood 4.2 g/dL (3.4-5.0); Beta-hydroxybutyrate 69.2 mg/dL (0.2-2.8); Bilirubin, Total 0.8 mg/dL (0.1-1.0); Bun/Creatinine Ratio 16.1 (12.0-20.0); Calcium, Blood 10.2 mg/dL (8.5-10.1); Creatinine, Blood 0.62 mg/dL (0.40-1.00); Globulin, Blood 4.2 g/dL (2.2-4.0); Potassium, Blood 5.4 mmol/L (3.5-5.5); Total Protein, Blood 8.4 g/dL (6.4-8.2)
[2024-02-09] MEDS ORDERED: Droperidol 5 mg/2 ml Vial IV ONE (20:25)
[2024-02-09] MEDS ORDERED: Insulin Human Regular 100 UNIT in NS 100 ML IV SCH (21:15)
[2024-02-09] MEDS ORDERED: Sodium Chloride 0.45% 1,000 ML IV SCH (21:30)
[2024-02-09] MEDS ORDERED: Ondansetron HCl 2 MG / ML 2ML Vial IV PRN (21:50)
[2024-02-09] MEDS ORDERED: Lactated Ringer's 1,000 ML IV SCH (21:50)
[2024-02-09] MEDS ORDERED: Metoclopramide HCl 5MG / ML 2ML Vial IV PRN (21:50)
[2024-02-09] MEDS ORDERED: FLU VACC TS2024-25(6MOS UP)/PF 45 MCG/0.5 ML SYRINGE IM SCH (21:50)
[2024-02-09] MEDS ORDERED: Lactated Ringer's 1,000 ML IV ONE (21:55)
[2024-02-09] MEDS ORDERED: FentaNYL Citrate 50 MCG/ML 2 ML Injection IV PRN (21:55)
[2024-02-09] MEDS ORDERED: Ketorolac Tromethamine 30mg Vial IV ONE (22:00)
[2024-02-09 22:04] LABS: Glucose, Blood 640 mg/dL (70-99)
[2024-02-09] MEDS ORDERED: Dextrose 50% 50 ML Vial IV PRN (22:10)
[2024-02-09] MEDS ORDERED: LevoFLOXacin 500 MG Tab PO SCH (22:30)
[2024-02-09] MEDS ORDERED: MetroNIDAZOLE 500 MG Tab PO SCH (22:30)
[2024-02-09 22:54] LABS: U Opiates Screen DETECTED; U Oxycodone Screen DETECTED
[2024-02-09 22:55] LABS: U Amphetamine Screen Not Detected; U Barbituate Screen Not Detected; U Benzodiazapine Screen Not Detected; U Buprenorphine Screen Not Detected; U Cannabinoids Screen Not Detected; U Cocaine Screen Not Detected; U Methadone Screen Not Detected; U Methamphetamine Screen Not Detected; U Phencyclidine Screen Not Detected
[2024-02-09 23:18] LABS: Bun/Creatinine Ratio 15.7 (12.0-20.0); Calcium, Blood 8.5 mg/dL (8.5-10.1); Creatinine, Blood 0.76 mg/dL (0.40-1.00); Potassium, Blood 4.9 mmol/L (3.5-5.5)
[2024-02-10] VITALS (31 sets, daily range): BP systolic 95–148; BP diastolic 58–99
[2024-02-10 00:21] LABS: Glucose, Blood 350 mg/dL (70-99)
[2024-02-10 01:23] LABS: Glucose, Blood 224 mg/dL (70-99)
[2024-02-10] MEDS ORDERED: D5W-1/2NS 1,000 ML IV SCH (01:55)
[2024-02-10] MEDS ORDERED: Ketorolac Tromethamine 15mg Vial IV PRN (04:00)
[2024-02-10 05:47] LABS: Hemoglobin 11.6 g/dL (11.5-16.0); Mean Corpuscular HGB Conc 32.2 g/dL (31.5-36.5); Mean Corpuscular Volume 84 fL (80-100); Platelet Count 345 K/mm3 (150-400); RDW Coefficient Variation 13.5 % (11.7-14.2); Red Blood Cell Count 4.29 M/mm3 (3.80-5.20); White Blood Cell Count 13.24 K/mm3 (4.00-11.30)
[2024-02-10 06:05] LABS: Bun/Creatinine Ratio 13.9 (12.0-20.0); Calcium, Blood 8.8 mg/dL (8.5-10.1); Creatinine, Blood 0.65 mg/dL (0.40-1.00); Magnesium, Blood 1.8 mg/dL (1.6-2.4); Phosphorus, Blood 2.7 mg/dL (2.5-4.9); Potassium, Blood 4.4 mmol/L (3.5-5.5)
--- NOTE | 2024-02-10 06:48 | NUR ---
PT ARRIVED FROM ED ON RA SPO2 99%, ST @ 110S, A0X4, [place]. INSULIN GTT @ 1 AND D5 1/2 NS @ 125. C/O BACK PAIN, HEAT APPLIED, REPOSITIONED. WHILE REPOSITIONING ONTO CLEAN BEDDING PT STARTED TO CRY OUT LOUDLY GETTING CLOSE TO SCREAMS AND NOT HEARING MY EFFORTS TO HAVE HER BE QUIETER FOR THE SAKE OF HERSELF AND OTHER PT'S IN THE UNIT WHO WOULD BE UPSET BY THIS. HAD TO LOOK HER IN THE EYES AND FIRMLY TELL HER TO STOP IT THUS UPSETTING HER AND SHE REQUESTED I NOT BE HER NURSE. ANOTHER NURSE STAYED AT HER BEDSIDE TO HELP TO COMFORT HER. I TRIED TO APOLOGIZE AND EXPLAIN, HOWEVER, SHE DID NOT WANT ME AROUND.
[2024-02-10] MEDS ORDERED: MetroNIDAZOLE 500MG/NS 100 ml 100 ML IV SCH (08:00)
[2024-02-10] MEDS ORDERED: LevoFLOXacin 750 MG/D5W 150ML 150 ML IV SCH (08:00)
[2024-02-10] MEDS ORDERED: DiphenhydrAMINE HCL 25 MG Cap PO PRN (08:20)
[2024-02-10] MEDS ORDERED: Acetaminophen 325 MG TABLET PO PRN (08:20)
[2024-02-10] MEDS ORDERED: Enoxaparin 40 MG/0.4 ML SYR SC SCH (09:00)
[2024-02-10 09:48] LABS: Calcium, Blood 8.7 mg/dL (8.5-10.1); Creatinine, Blood 0.6 mg/dL (0.40-1.00); Potassium, Blood 4.1 mmol/L (3.5-5.5)
[2024-02-10] MEDS ORDERED: Lactated Ringer's 1,000 ML IV SCH (11:00)
--- NOTE | 2024-02-10 11:21 | NUR ---
"Spiritual Care | Nurse Request Pt. is awake in bed when she welcomes my visit. This neurologist had already seen this Pt. on two previous hospital visits. Facilitated an update and Pt. verbalized that she had fallen down the stairs, Listen with empathy and a calming presance. Pt. showed this neurologist photos of her 5 month baby. Sought to encourage the Pt. and normalized the Pt. experience as Pt. has multiple health issueus to address. Pt. displayed evidence of understanding and trust. Prayed for Pt. Pt. verbalized gratitude for the spiritual care visit."
[2024-02-10 17:04] LABS: Bun/Creatinine Ratio 13.2 (12.0-20.0); Creatinine, Blood 0.61 mg/dL (0.40-1.00); Potassium, Blood 3.9 mmol/L (3.5-5.5)
[2024-02-10] MEDS ORDERED: Insulin Glargine-Yfgn 100 Unit/mL 3 ML SYR SC SCH (18:00)
[2024-02-10] MEDS ORDERED: Insulin Human Lispro 100 Units/ML 3ML Syringe SC SCH (18:00)
--- NOTE | 2024-02-10 21:43 | NUR ---
ASSUMPTION OF CARE: ASSUMED CARE OF PT AT 1915. PT ALERT AND ORIENTED X4. FOLLOWS DIRECTION, MOVES ALL EXTREMETIES AND MAKES NEEDS KNOWN. PT ON RA WITH SPO2 MID TO HIGH 90'S. DENIES SOB, LUNGS CLEAR. ARCH CUSHION SKIVING MACHINE OPERATOR IN PLACE, ST WITH HR 100'S. SBP 120'S. DENIES CP/PRESSURE. PT ENDORSES PAIN IN LOWER BACK FROM FALL AT HOME. MEDICATED WITH PRN PAIN MEDICATION. APPLIED ICE TO SITE WITH MINIMAL RELIEF. INSULIN DRIP WAS DISCONNECTED FROM PT AND FOUND INFUSING ON FLOOR AT SHIFT CHANGE, TURNED OFF, BLOOD SUGAR CHECKED AND GIVEN NIGHT DOSE OF SHORT ACTING INSULIN. PT TOLERATING PO INTAKE WELL, NO C/O N/V. ABLE TO AMBULATE TO COMMODE. PT UP IN CHAIR CURRENTLY. PIV TO LAC AND RFA PATENT AND SALINE LOCKED. CALL LIGHT IN REACH.
[2024-02-10] MEDS ORDERED: Lidocaine 4% 1 Patch TOP ONE (22:05)
[2024-02-11] VITALS (10 sets, daily range): BP systolic 119–152; BP diastolic 78–118
[2024-02-11 01:32] LABS: Bun/Creatinine Ratio 16.2 (12.0-20.0); Calcium, Blood 8.8 mg/dL (8.5-10.1); Creatinine, Blood 0.62 mg/dL (0.40-1.00)
[2024-02-11] MEDS ORDERED: Insulin Glargine-Yfgn 100 Unit/mL 3 ML SYR SC ONE (01:40)
--- NOTE | 2024-02-11 05:34 | NUR ---
SHIFT SUMMARY: NO ACUTE CHANGES OVERNIGHT. PT CONTINUES TO BE VERY PAINFUL IN LOWER BACK, MEDICATED WITH PRN MEDS. PT ABLE TO TRANSFER TO BSC VERY SLOWLY. VOIDING DARK YELLOW URINE. ENCOURAGED TO DRINK WATER. NO BM THIS SHIFT. PT SALINE LOCKED. SLEEPING IN CHAIR T/O THE NIGHT PER REQUEST OF PT. SHE STATED THAT WAS THE ONLY COMFORTABLE SPOT FOR HER TO TRY TO REST. PIVS INTACT. A&O X4. TEARFUL AND ANXIOUS WITH MOVEMENT. SR WITH HR 70'S, SBP 120'S. TOLERATING PO INTAKE. CALL LIGHT IN REACH.
[2024-02-11 05:40] LABS: BASOPHILS ABSOLUTE AUTO 0.07 K/mm3 (0.00-0.23); BASOPHILS PERCENT AUTO 1 % (0-2); EOSINOPHILS ABSOLUTE AUTO 0.11 K/mm3 (0.00-0.68); EOSINOPHILS PERCENT AUTO 1 % (0-6); Hematocrit 31.6 % (33.0-51.0); Hemoglobin 10.5 g/dL (11.5-16.0); IMMATURE GRAN ABSOLUTE AUTO 0.03 K/mm3 (0.00-0.10); IMMATURE GRAN PERCENT AUTO 0 % (0-1); LYMPHOCYTES ABSOLUTE AUTO 2.31 K/mm3 (0.84-5.20); LYMPHOCYTES PERCENT AUTO 29 % (21-46); MONOCYTES ABSOLUTE AUTO 0.69 K/mm3 (0.16-1.47); MONOCYTES PERCENT AUTO 9 % (4-13); Mean Corpuscular HGB Conc 33.2 g/dL (31.5-36.5); Mean Corpuscular Volume 81 fL (80-100); Mean Platelet Volume 10.1 fL (9.1-12.4); NEUTROPHILS ABSOLUTE AUTO 4.67 K/mm3 (1.96-9.15); NEUTROPHILS PERCENT AUTO 59 % (41-73); Platelet Count 278 K/mm3 (150-400); RDW Coefficient Variation 13.7 % (11.7-14.2); Red Blood Cell Count 3.89 M/mm3 (3.80-5.20); White Blood Cell Count 7.88 K/mm3 (4.00-11.30)
--- NOTE | 2024-02-11 06:08 | NUR ---
UPDATE: UNABLE TO OBTAIN MORNING WEIGHT. PT UNABLE TO LAY IN BED, STAYED IN RECLINER ALL NIGHT PER REQUEST.
[2024-02-11 06:34] LABS: Albumin, Blood 2.8 g/dL (3.4-5.0); Albumin/Globulin Ratio 0.9 (0.8-1.8); Bilirubin, Total 0.2 mg/dL (0.1-1.0); Bun/Creatinine Ratio 14.9 (12.0-20.0); Calcium, Blood 8.8 mg/dL (8.5-10.1); Creatinine, Blood 0.61 mg/dL (0.40-1.00); Potassium, Blood 3.9 mmol/L (3.5-5.5); Total Protein, Blood 5.8 g/dL (6.4-8.2)
[2024-02-11] MEDS ORDERED: Lidocaine 4% 1 Patch TOP SCH (09:00)
[2024-02-11] MEDS ORDERED: Insulin Human Lispro 100 Units/ML 3ML Syringe SC SCH (10:00)
[2024-02-11] MEDS ORDERED: Acetaminophen650 M1 PO (11:24)
[2024-02-11] MEDS ORDERED: TRAM50 PO (11:24)
[2024-02-11] MEDS ORDERED: LIDO700A20 TOP (11:28)
--- NOTE | 2024-02-11 13:14 | NUR ---
SUMMARY THIS RN ASSUMED CARE AT 1000. PT A/O X4. HAS PAIN IN LOW BACK. MOVES ABOUT SLOWLY. PT BEING DISCHARGED. RX FOR TRAMADOL GIVEN TO PT WITH DISCHARGE PAPERWORK AND THE REST OF RX'S WERE FAXED TO [facility]. PT ABLE TO SLOWLY GET SELF TO W/C. ASSISTED TO CAR WITH DAD AND CLINICAL LABORATORY DIRECTOR. NO SIGN OF DISTRESS.
== END 2024-02-11 13:10 | disposition home or self-care (01) | DRG 639 ==
LOC: ER 17:46 → ERHOLD 22:15 → ICUE 22:15
PROVIDERS: Hospitalist; Nurse Practitioner Acute Care; Student in an Organized Health Care Education/Training Program; ADMIT Internal Medicine
DX: E10.10 Type 1 diabetes mellitus with ketoacidosis without coma (principal); K04.7 Periapical abscess without sinus; F32.A Depression, unspecified; F41.9 Anxiety disorder, unspecified; M54.50 Low back pain, unspecified; W10.9XXA Fall (on) (from) unspecified stairs and steps, initial encounter; M25.552 Pain in left hip; D64.9 Anemia, unspecified; Z88.1 Allergy status to other antibiotic agents; Z88.8 Allergy status to other drugs, medicaments and biological substances; Z79.4 Long term (current) use of insulin; Z79.899 Other long term (current) drug therapy; Z79.2 Long term (current) use of antibiotics
CPT/HCPCS: 36415; 74177; 80048; 80053; 81003; 81025; 82010; 82803; 82947; 83036; 83690; 83735; 84100; 84145; 85025; 85027; 93005; 93010; 96361; 96374-59; 96375; 97110; 97116; 97161; 97530; 99285-25; A9270; J1790; J1815; J1885; J1956; J2405; J2765; J3010; J7030; J7042; J7120; Q9967

== ENCOUNTER 2024-11-25 14:41 | Emergency (ER) | payer OTHER ==
[~2024-11-25] VITALS: Ht 167.6 cm; Wt 63.5 kg
[~2024-11-25 14:41] MED LIST changes: +Acetaminophen650 M1 PO; +LIDO700A20 TOP; +TRAM50 PO
[2024-11-25 15:03] VITALS: BP 140/84
== END 2024-11-25 15:20 | disposition home or self-care (01) ==
LOC: ER 14:41
DX: Z76.0 Encounter for issue of repeat prescription (principal); Z71.3 Dietary counseling and surveillance; E10.9 Type 1 diabetes mellitus without complications; Z88.0 Allergy status to penicillin; Z88.8 Allergy status to other drugs, medicaments and biological substances; Z79.4 Long term (current) use of insulin
CPT/HCPCS: 99281